=== PATIENT | female | born 1930 | race Asian ===

== ENCOUNTER 2018-11-07 19:11 | Inpatient (IN) ==
[2018-11-07] MEDS ORDERED: IOPAMIDOL 100 ML BOTTLE IV ONE (19:12)
--- NOTE | 2018-11-07 19:31 | Emergency Department Note ---
General Adult HPI - General Chief complaint: Weakness Stated complaint: fever Time Seen by Provider: 11/07/18 19:27 Source: EMS Mode of arrival: EMS Limitations: no limitations - History of Present Illness HPI Narrative: This patient came in because of fever and some generalized achiness. He does have a temperature of 103.2 but does not have specific symptoms of infection as far as his cough urinary symptoms. Onset (ago): day(s) - Related Data Home Medications Medication Instructions Recorded Confirmed Rivaroxaban [Xarelto] 20 mg PO DAILY 10/25/14 11/08/18 Spironolactone [Aldactone] 25 mg PO DAILY 10/25/14 11/08/18 Iron 65 mg PO DAILY 11/08/18 11/08/18 Meloxicam [Mobic] 7.5 mg PO DAILY 11/08/18 11/08/18 Previous Rx's Medication Instructions Recorded tramadol 50 mg tablet 100 mg PO BID #180 tab 09/30/14 Allergies Allergy/AdvReac Type Severity Reaction Status Date / Time carvedilol [From Coreg] Allergy Unknown Unknown Verified 10/25/14 16:20 gabapentin Allergy Unknown Unknown Verified 10/25/14 16:20 hydrocodone AdvReac Unknown HEADACHE, Verified 10/25/14 21:45 NAUSEA, SKIN FLUSHING Review of Systems All systems ED: reviewed and negative except as stated. Past Medical History - Past Medical History PMFSH Narrative: Medical History Chest pain (Acute) CHF (congestive heart failure) (Acute) Dehydration (Acute) Gastritis (Acute) Medical history: Reports: aortic aneurysm, CHF, CAD (coronary artery disease) - Social History smoking status: Never smoker Physical Exam Limitations: no limitations General appearance: alert Head: atraumatic Eye: Present: normal appearance ENT: Present: normal exam Chest: Present: normal inspection Respiratory: Present: normal lung sounds bilaterally Cardiovascular: Present: regular rate, normal rhythm, normal heart sounds Abdominal: Present: soft. Absent: distention, tenderness Neurological: Present: alert Psychiatric: Present: normal affect Skin: Present: warm, dry Course Vital Signs Temperature 102.3 F H 11/07/18 19:13 Pulse Rate 109 H 11/07/18 19:13 Respiratory Rate 18 11/07/18 19:13 Blood Pressure 128/91 11/07/18 19:13 Pulse Oximetry (%) 95 11/07/18 19:13 Temperature 96.4 F L 11/08/18 05:00 Pulse Rate 69 11/08/18 05:00 Respiratory Rate 16 11/08/18 05:00 Blood Pressure 94/76 11/08/18 05:56 Pulse Oximetry (%) 98 11/08/18 05:00 Medical Decision Making - MDM Narrative Medical decision making narrative: We could not find a specific source of infection and she had testing done including CT scan of chest abdomen and pelvis. Her blood pressure was acceptable when she arrived but it did drop down to so as low as 80. She r eceived 2 L of fluid. There was a concern for occult sepsis so she had blood cultures done and was given Levaquin and Rocephin initially and later vancomycin and Zosyn. Patient's blood pressure after fluid was in the 90-92 range. This patient will be admitted to the hospital by the hospitalist. - Medical Records Medical records reviewed: Yes I reviewed the patient's medical records. - Lab Data Result diagrams: 11/07/18 19:55 11/07/18 19:55 Lab Results 11/07/18 11/07/18 11/07/18 Range/Units 19:39 19:55 19:55 WBC 12.4 H (4.5-11.0) K/mcL RBC 3.75 L (4.00-5.20) M/mcL Hgb 13.3 (12.0-15.0) g/dL Hct 39.6 (36.0-48.0) % MCV 105.6 H (80.0-100.0) fL MCH 35.4 H (26.0-34.0) pg MCHC 33.5 (31.0-36.0) g/dL RDW 13.4 (11.5-14.5) % Plt Count 187 (140-440) K/mcL MPV 7.3 L (7.4-10.4) fL Gran % 91.7 H (38.0-78.0) % Lymph % (Auto) 4.3 L (15.5-49.0) % Ralls % (Auto) 3.9 (1.0-12.0) % Eos % (Auto) 0 (0.0-7.0) % Baso % (Auto) 0.1 (0.0-2.0) % Gran # 11.3 H (1.8-8.0) K/mcL Lymph # (Auto) 0.5 L (1.5-4.8) K/mcL Ralls # (Auto) 0.5 (0.1-0.9) K/mcL Eos # (Auto) 0 (0.0-0.7) K/mcL Baso # (Auto) 0 (0.0-0.3) K/mcL VBG Lactic Acid (0.5-2.0) mmol/L Sodium 140 (133-145) mmol/L Potassium 4.7 (3.3-5.1) mmol/L Chloride 102 (96-108) mmol/L Carbon Dioxide 23 (22-30) mmol/L Anion Gap 15.0 (8-16) BUN 50 H (8-23) mg/dl Creatinine 1.4 H (0.6-1.1) mg/dl GFR Calculation 33 Glucose 127 H (70-105) mg/dL Calcium 10.4 (8.6-10.4) mg/dl Total Bilirubin 1.0 (0.0-1.0) mg/dL AST 28 (0-37) U/l ALT 13 (0-40) U/l Alkaline Phosphatase 87 (39-117) U/L Troponin T (0-0.03) ng/ml C-Reactive Protein (0.0-0.8) mg/dl Total Protein 7.9 (5.9-8.4) gm/dL Albumin 3.1 L (3.2-5.2) gm/dL Globulin 4.8 H (2.2-3.7) gm/dL Albumin/Globulin Ratio 0.6 L (1.0-2.3) Procalcitonin (<0.10) ng/mL Urine Color Yellow Urine Appearance Clear Urine pH 5.0 (5.0-9.0) Ur Specific [place] 1.025 (1.000-1.035) Urine Protein Neg (NEG) mg/dL Urine Glucose (UA) Negative (NEG) mg/dL Urine Ketones 5/tr A (NEG) mg/dL Urine Occult Blood Neg (<0.03) mg/dL Urine Nitrate Neg (NEG) Urine Bilirubin Neg (NEG) mg/dL Urine Urobilinogen Neg (NEG) mg/dL Ur Leukocyte Esterase Neg (NEG) /uL Urine RBC 6 H (0-1) /hpf Urine WBC 1 (0-4) /hpf Ur Squamous Epith Cells < 1 (0-4) /hpf Urine Bacteria 0 (0) /hpf Urine Mucus Few (0) /hpf Ur Culture Indicated? No 11/07/18 11/08/18 11/08/18 Range/Units 19:55 00:45 00:45 WBC (4.5-11.0) K/mcL RBC (4.00-5.20) M/mcL Hgb (12.0-15.0) g/dL Hct (36.0-48.0) % MCV (80.0-100.0) fL MCH (26.0-34.0) pg MCHC (31.0-36.0) g/dL RDW (11.5-14.5) % Plt Count (140-440) K/mcL MPV (7.4-10.4) fL Gran % (38.0-78.0) % Lymph % (Auto) (15.5-49.0) % Ralls % (Auto) (1.0-12.0) % Eos % (Auto) (0.0-7.0) % Baso % (Auto) (0.0-2.0) % Gran # (1.8-8.0) K/mcL Lymph # (Auto) (1.5-4.8) K/mcL Ralls # (Auto) (0.1-0.9) K/mcL Eos # (Auto) (0.0-0.7) K/mcL Baso # (Auto) (0.0-0.3) K/mcL VBG Lactic Acid 1.9 (0.5-2.0) mmol/L Sodium (133-145) mmol/L Potassium (3.3-5.1) mmol/L Chloride (96-108) mmol/L Carbon Dioxide (22-30) mmol/L Anion Gap (8-16) BUN (8-23) mg/dl Creatinine (0.6-1.1) mg/dl GFR Calculation Glucose (70-105) mg/dL Calcium (8.6-10.4) mg/dl Total Bilirubin (0.0-1.0) mg/dL AST (0-37) U/l ALT (0-40) U/l Alkaline Phosphatase (39-117) U/L Troponin T < 0.01 (0-0.03) ng/ml C-Reactive Protein 7.2 H (0.0-0.8) mg/dl Total Protein (5.9-8.4) gm/dL Albumin (3.2-5.2) gm/dL Globulin (2.2-3.7) gm/dL Albumin/Globulin Ratio (1.0-2.3) Procalcitonin (<0.10) ng/mL Urine Color Urine Appearance Urine pH (5.0-9.0) Ur Specific [place] (1.000-1.035) Urine Protein (NEG) mg/dL Urine Glucose (UA) (NEG) mg/dL Urine Ketones (NEG) mg/dL Urine Occult Blood (<0.03) mg/dL Urine Nitrate (NEG) Urine Bilirubin (NEG) mg/dL Urine Urobilinogen (NEG) mg/dL Ur Leukocyte Esterase (NEG) /uL Urine RBC (0-1) /hpf Urine WBC (0-4) /hpf Ur Squamous Epith Cells (0-4) /hpf Urine Bacteria (0) /hpf Urine Mucus (0) /hpf Ur Culture Indicated? 11/08/18 Range/Units 00:45 WBC (4.5-11.0) K/mcL RBC (4.00-5.20) M/mcL Hgb (12.0-15.0) g/dL Hct (36.0-48.0) % MCV (80.0-100.0) fL MCH (26.0-34.0) pg MCHC (31.0-36.0) g/dL RDW (11.5-14.5) % Plt Count (140-440) K/mcL MPV (7.4-10.4) fL Gran % (38.0-78.0) % Lymph % (Auto) (15.5-49.0) % Ralls % (Auto) (1.0-12.0) % Eos % (Auto) (0.0-7.0) % Baso % (Auto) (0.0-2.0) % Gran # (1.8-8.0) K/mcL Lymph # (Auto) (1.5-4.8) K/mcL Ralls # (Auto) (0.1-0.9) K/mcL Eos # (Auto) (0.0-0.7) K/mcL Baso # (Auto) (0.0-0.3) K/mcL VBG Lactic Acid (0.5-2.0) mmol/L Sodium (133-145) mmol/L Potassium (3.3-5.1) mmol/L Chloride (96-108) mmol/L Carbon Dioxide (22-30) mmol/L Anion Gap (8-16) BUN (8-23) mg/dl Creatinine (0.6-1.1) mg/dl GFR Calculation Glucose (70-105) mg/dL Calcium (8.6-10.4) mg/dl Total Bilirubin (0.0-1.0) mg/dL AST (0-37) U/l ALT (0-40) U/l Alkaline Phosphatase (39-117) U/L Troponin T (0-0.03) ng/ml C-Reactive Protein (0.0-0.8) mg/dl Total Protein (5.9-8.4) gm/dL Albumin (3.2-5.2) gm/dL Globulin (2.2-3.7) gm/dL Albumin/Globulin Ratio (1.0-2.3) Procalcitonin 1.28 (<0.10) ng/mL Urine Color Urine Appearance Urine pH (5.0-9.0) Ur Specific [place] (1.000-1.035) Urine Protein (NEG) mg/dL Urine Glucose (UA) (NEG) mg/dL Urine Ketones (NEG) mg/dL Urine Occult Blood (<0.03) mg/dL Urine Nitrate (NEG) Urine Bilirubin (NEG) mg/dL Urine Urobilinogen (NEG) mg/dL Ur Leukocyte Esterase (NEG) /uL Urine RBC (0-1) /hpf Urine WBC (0-4) /hpf Ur Squamous Epith Cells (0-4) /hpf Urine Bacteria (0) /hpf Urine Mucus (0) /hpf Ur Culture Indicated? - Radiology Data Radiology results reviewed: Yes I reviewed the patient's radiology results. Disposition Pt seen by MAIL SUPERINTENDENT/PA only: No Clinical Impression: Sepsis Disposition: Xfer As Inpt ([facility]) Condition: Fair
[2018-11-07] MEDS ORDERED: ACETAMINOPHEN 325 MG TABLET PO ONE (19:54)
[2018-11-07] MEDS: LACTATED RINGERS 1,000 ML IV SCH (20:03)
[2018-11-07] MEDS ORDERED: LEVOFLOXACIN 750 MG/150 ML BAG IV ONE (21:18)
[2018-11-07] MEDS ORDERED: cefTRIAXone 1 GM VIAL IV ONE (21:19)
[2018-11-07 21:22] LABS: Basophils # (Auto) 0 K/mcL (0.0-0.3); Basophils % (Auto) 0.1 % (0.0-2.0); Eosinophils # (Auto) 0 K/mcL (0.0-0.7); Eosinophils % (Auto) 0 % (0.0-7.0); Granulocytes % (Auto) 91.7 % (38.0-78.0); Hematocrit 39.6 % (36.0-48.0); Hemoglobin 13.3 g/dL (12.0-15.0); Lymphocytes # (Auto) 0.5 K/mcL (1.5-4.8); Lymphocytes % (Auto) 4.3 % (15.5-49.0); Mean Cell Volume 105.6 fL (80.0-100.0); Mean Corpuscular HGB Conc 33.5 g/dL (31.0-36.0); Mean Platelet Volume 7.3 fL (7.4-10.4); Monocytes # (Auto) 0.5 K/mcL (0.1-0.9); Monocytes % (Auto) 3.9 % (1.0-12.0); Platelet Count 187 K/mcL (140-440); RBC 3.75 M/mcL (4.00-5.20); Red Cell Distribution Width 13.4 % (11.5-14.5); WBC 12.4 K/mcL (4.5-11.0)
[2018-11-07] MEDS ORDERED: LACTATED RINGERS 1,000 ML IV ONE (21:40)
[2018-11-07 21:42] LABS: Appearance,Urine CLEAR; Bacteria,Urine 0 /hpf (0); Bilirubin,Urine NEG (NEG); Color,Urine YELLOW; Culture Indicated,Urine NO; Glucose,Urine (UA) NEGATIVE (NEG); Ketones,Urine 5/TR mg/dL (NEG); Leukocyte Esterase,Urine NEG /uL (NEG); Mucus,Urine FEW /hpf (0); Nitrate,Urine NEG (NEG); Protein,Urine NEG (NEG); Specific Gravity,Urine 1.025 (1.000-1.035); Urine Blood NEG mg/dL (<0.03); Urine RBC 6 /hpf (0-1); Urine Squamous Epithelial Cell < 1 /hpf (0-4); Urine WBC 1 /hpf (0-4); Urobilinogen,Urine NEG (NEG)
[2018-11-07 21:46] LABS: ALT/SGPT 13 U/l (0-40); AST/SGOT 28 U/l (0-37); Albumin 3.1 gm/dL (3.2-5.2); Albumin/Globulin Ratio 0.6 (1.0-2.3); Alkaline Phosphatase 87 U/L (39-117); Blood Urea Nitrogen 50 mg/dl (8-23); Calcium 10.4 mg/dl (8.6-10.4); Carbon Dioxide 23 mmol/L (22-30); Chloride 102 mmol/L (96-108); Globulin 4.8 gm/dL (2.2-3.7); Glomerular Filtration Rate 33; Glucose 127 mg/dL (70-105)
[2018-11-08] MEDS ORDERED: 0.9 % SODIUM CHLORIDE 250 ML IV SCH (00:30)
[2018-11-08] MEDS ORDERED: NOREPINEPHRINE BITARTRATE 16 MG in 0.9 % SODIUM CHLORIDE 234 ML IV SCH (00:30)
[2018-11-08 01:42] LABS: C-Reactive Protein 7.2 mg/dl (0.0-0.8)
[2018-11-08] MEDS ORDERED: VANCOMYCIN 1,000 MG in 0.9 % SODIUM CHLORIDE 250 ML IV ONE (02:21)
[2018-11-08] MEDS ORDERED: PIPERACILLIN SODIUM/TAZOBACTAM 3.375 GM in DEXTROSE 5% IN WATER 50 ML IV ONE (02:21)
[2018-11-08] MEDS: LACTATED RINGERS 1,000 ML IV SCH ×2 (02:27→08:18)
[2018-11-08] MEDS ORDERED: LACTATED RINGERS 1,000 ML IV SCH (02:30)
--- NOTE | 2018-11-08 03:25 | XRay Report ---
CLINICAL INFORMATION: fever COMPARISON: 01/04/2015 FINDINGS: Moderate cardiomegaly is unchanged. Tortuous thoracic aorta again noted. The mediastinum and pulmonary vasculature are otherwise normal. Mild scattered bilateral scarring noted, but no staci infiltrates. No definite effusions. IMPRESSION: Moderate stable cardiomegaly - no acute disease Interpreted and Authenticated by: Sylvester Elias 11/08/18
--- NOTE | 2018-11-08 07:01 | Cat Scan Report ---
CLINICAL INFORMATION: Sepsis COMPARISON: Chest CT 01/30/[address] 10/27/2014 TECHNIQUE: Enteric contrast was utilized. 80 cc of Isovue-370 were injected intravenously, and 50 seconds later 2.5 mm helical slices were obtained from the lung apices through the subtrochanteric regions of the femurs. Following reconstruction, 2.5 mm sagittal, coronal and axial reformatted images were processed and reviewed at multiple windows and levels. 7 mm MIP reconstructions were obtained through the lungs to optimize nodule detection.The exam was performed using radiation dose optimization techniques including, but not limited to, automated exposure control, adjustment of the mA and/or kV according to patient size and use of iterative reconstruction technique. FINDINGS: Mediastinal windows show marked cardiomegaly which is unchanged. Ectasia of the thoracic aortic root diameter 3.8 cm is also also stable. Mild diffuse atherosclerotic plaque present in the thoracic aorta. The central pulmonary arteries are upper limits of normal in diameter: 3.2 cm. There is no adenopathy in the mediastinal hilar or axillary region. The esophagus is unremarkable. Pulmonary parenchymal windows show subsegmental compressive atelectasis in the anterior basilar segment of the left lower lobe due to the enlarged heart. There is also scattered scarring or atelectasis in both lungs - predominantly the right lower lobe. This is unchanged. There are no diffuse or regional infiltrates. No effusions. Abdominal images again show multiple cysts scattered throughout the liver ranging up to 4.2 cm inferior right hepatic lobe there are also stable. The gallbladder and bile ducts are normal: CBD is 5 mm. Both kidneys, adrenal glands, spleen and pancreas are unremarkable. The abdominal aorta contains plaque is normal diameter. Aortic branches contain atherosclerotic plaque but no stenosis. There are multiple varices in the perisplenic region which are unchanged. The stomach, small /large bowel and appendix are normal. Pelvic images show anteflexed uterus which is normal and stable in size: 6 cm x 4 cm. There are multiple small calcified fibroids scattered throughout the uterus which are stable since 2013. The region of the ovaries are normal. Urinary bladder is unremarkable. Bone windows show no focal osseous abnormality throughout the chest abdomen or pelvis. IMPRESSION: 1. No evidence of infection 2. Marked cardiomegaly - unchanged 3. Mild ectasia of the ascending thoracic aorta - 3.8 cm unchanged. 4. Multiple hepatic cysts stable since abdominal CT 10/27/2014 5. 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 Multiple small calcified fibroid uterus - stable Interpreted and Authenticated by: Sylvester Elias 11/08/18
[2018-11-08] MEDS ORDERED: VANCOMYCIN PER PHARMACY IV SCH (07:46)
--- NOTE | 2018-11-08 07:47 | Internal Med History&Physical ---
Medical - H&P: [facility] Patient information: Note initiated : 11/08/18 at 7:43 am Service Date, if different from initiated Date: [] Patient: Elisa Phan 88 y/o F admitted on 11/08/18 for fever. Chief Complaint: [] History of present illness: Ms. Phan is a 88 year old F Who presents for weakness for 2 weeks. Family stated she had not had anything to eat or drink for [address] of the chest abdomen pelvis unremarkable for evidence of infection. She was mildly hypotensive in the ED. Showed improvement with fluids. ED work-up for source of infection unremarkable. Patient is a poor historian and quite drowsy. she states weakness for about 10 days along with some dyspnea. Mild sore throat and family thinks may be that is why she was not eating, per nurses. No diarrhea chest pain or coughing. No wounds or ulcers. Complain of some chills but denies fever. She has has had some headache but none for the past couple days. He admitted to dysuria, although urinalysis was unremarkable. She has a history of PAF and is on Xarelto and an old note from 2014 showed metoprolol but she does not recall why she was taken off as it is not on her home list. Review of Systems: Pertinent positives as above. Denies headache/fever/nausea/vomiting/chest or abdominal pain/cough/dyspnea/diarrhea. Remaining 10 point review of systems reviewed negative Medical - H&P: PMH Medical history: Medical History Chest pain (Acute) CHF (congestive heart failure) (Acute) Dehydration (Acute) Gastritis (Acute) CAD CKD IIIb Past surgical history: Bilateral knee replacement Family history: Father hypertension Mother healthy Social history: Patient denies tobacco or alcohol Ablates with a walker Lives by herself Medical - H&P: Meds Home Medications Medication Instructions Recorded Confirmed Type tramadol 50 mg tablet 100 mg PO BID #180 tab 09/30/14 11/08/18 Rx Rivaroxaban [Xarelto] 20 mg PO DAILY 10/25/14 11/08/18 History Spironolactone [Aldactone] 25 mg PO DAILY 10/25/14 11/08/18 History Iron 65 mg PO DAILY 11/08/18 11/08/18 History Meloxicam [Mobic] 7.5 mg PO DAILY 11/08/18 11/08/18 History Allergies Allergy/AdvReac Type Severity Reaction Status Date / Time carvedilol [From Coreg] Allergy Unknown Unknown Verified 10/25/14 16:20 gabapentin Allergy Unknown Abdominal Verified 11/08/18 10:02 Pain hydrocodone AdvReac Unknown HEADACHE, Verified 10/25/14 21:45 NAUSEA, SKIN FLUSHING Medical - H&P: Exam - Constitutional Vitals: Temp Pulse Resp BP Pulse Ox 96.4 F L 78 16 90/68 96 11/08/18 05:00 11/08/18 07:00 11/08/18 05:00 11/08/18 07:00 11/08/18 07:00 Exam: General: drowsy, No acute Distress Eyes/N/T: EOMI, PEERL, DMM, posterior pharynx erythematous unable to appreciate exudates but difficult to evaluate given patient's cooperation head/Neck: neck supple, normocephalic atraumatic CV: irreg irreg, No murmurs, normal s1/s2 Pulm: Clear b/l, no wheezing/rhonchi/rales Abd: soft, mild generalized TTP, +BS x4 Ext: no clubbing/cyanosis/edema Neuro: drowsy, no focal deficits, moves all extremities, CN 2-12 grossly intact, symmetrical strength b/l upper/lower but lower quite weak symmetrically, sensations intact b/l upper/lower Skin: warm/dry Medical - H&P: Reslt - Labs CBC & Chem 7: 11/08/18 08:12 11/08/18 08:12 Labs: Short CBC 11/07/18 Range/Units 19:55 WBC 12.4 H (4.5-11.0) K/mcL Hgb 13.3 (12.0-15.0) g/dL Hct 39.6 (36.0-48.0) % Plt Count 187 (140-440) K/mcL BMP 11/07/18 19:55 Sodium 140 Potassium 4.7 Chloride 102 Carbon Dioxide 23 BUN 50 H Creatinine 1.4 H Glucose 127 H Calcium 10.4 Cardiac Enzymes 11/08/18 Range/Units 00:45 Troponin T < 0.01 (0-0.03) ng/ml Liver Function 11/07/18 Range/Units 19:55 Total Bilirubin 1.0 (0.0-1.0) mg/dL AST 28 (0-37) U/l ALT 13 (0-40) U/l Alkaline Phosphatase 87 (39-117) U/L Albumin 3.1 L (3.2-5.2) gm/dL Urine 11/07/18 Range/Units 19:39 Urine Color Yellow Urine Appearance Clear Urine pH 5.0 (5.0-9.0) Ur Specific [place] 1.025 (1.000-1.035) Urine Protein Neg (NEG) mg/dL Urine Glucose (UA) Negative (NEG) mg/dL - Impressions CT chest abdomen pelvis unremarkable for obvious infection Medical - H&P: A/P - Narrative A/P Narrative: A: *Sepsis-like presentation: unkown source at this time, UA and imaging unremarkable, no wounds noted, does have mild sore throat -now afebrile, mild leukocytosis -PCT 1.28 -CT c/a/p no source *Hypotenstion: resolved in ED with IVF's *Encephalopathy (Lethargy): *Pharyngitis, mild: *CKD IIIb: stable *PAF: on xaralto. *HTN: on aldactone *h/o Pancytopenia and Hepatocellular CA and Hep B: *ARCHANA: on iron supp P: -Vanc/zosyn -pending BC -rapid strep test, ASO -f/u PCT -consider ID consult - -pt/ot -ppx: xaralto full code Medical - H&P: Qual - VTE Deep Vein Thrombosis/Pulmonary Embolism Present on Admission: No
[2018-11-08] MEDS ORDERED: PIPERACILLIN SODIUM/TAZOBACTAM 2.25 GM in DEXTROSE 5% IN WATER 50 ML IV SCH (08:00)
[2018-11-08 08:50] LABS: Hematocrit 29.2 % (36.0-48.0); Hemoglobin 9.6 g/dL (12.0-15.0); Mean Cell Volume 107.3 fL (80.0-100.0); Mean Platelet Volume 7.2 fL (7.4-10.4); Platelet Count 184 K/mcL (140-440); RBC 2.72 M/mcL (4.00-5.20); Red Cell Distribution Width 13.4 % (11.5-14.5); WBC 11.9 K/mcL (4.5-11.0)
[2018-11-08] MEDS: ACETAMINOPHEN 325 MG TABLET PO PRN ×2 (09:13→15:39)
[2018-11-08 09:17] LABS: ALT/SGPT 20 U/l (0-40); AST/SGOT 47 U/l (0-37); Albumin 3.1 gm/dL (3.2-5.2); Albumin/Globulin Ratio 0.7 (1.0-2.3); Alkaline Phosphatase 55 U/L (39-117); Bilirubin,Direct 0.5 mg/dL (0.0-0.3); Bilirubin,Total 1.1 mg/dL (0.0-1.0); Blood Urea Nitrogen 43 mg/dl (8-23); Calcium 9.5 mg/dl (8.6-10.4); Carbon Dioxide 24 mmol/L (22-30); Chloride 101 mmol/L (96-108); Globulin 4.2 gm/dL (2.2-3.7); Glomerular Filtration Rate 40; Glucose 105 mg/dL (70-105); Lactate Dehydrogenase 227 U/L (94-250); Phosphorous 2.1 mg/dL (2.7-4.5); Triglycerides 110 mg/dl (<150); Uric Acid 6.6 mg/dL (2.5-8.0)
[2018-11-08 09:36] LABS: Folate > 20.0 ng/mL (4.2-19.9)
[2018-11-08 10:00] LABS: Band Neutrophils % 1 % (0-10); Lymphocytes % 9 % (15-49); Macrocytosis 2+ (NONE SEEN); Monocytes % (Manual) 3 % (1-12); Platelet Estimate NORMAL (NORMAL); RBC Morphology ABNORM (NORMAL); Segmented Neutrophils % 87 % (38-78)
[2018-11-08] MEDS ORDERED: ONDANSETRON 4 MG/2 ML VIAL IV PRN (10:04)
[2018-11-08] MEDS ORDERED: POLYETHYLENE GLYCOL 3350 17 GM PACKET PO PRN (10:04)
[2018-11-08] MEDS ORDERED: SENNOSIDES 1 TABLET PO PRN (10:04)
[2018-11-08] MEDS ORDERED: POTASSIUM CHLORIDE 20 MEQ TABLET PO PRN ×2 (10:04)
[2018-11-08] MEDS ORDERED: MAGNESIUM SULFATE 2 GM/50 ML BAG IV PRN (10:04)
[2018-11-08] MEDS ORDERED: METOCLOPRAMIDE 10 MG/2 ML VIAL IV PRN (10:04)
[2018-11-08] MEDS ORDERED: POTASSIUM CHLORIDE 40 MEQ in DEXTROSE 5% IN WATER 500 ML IV PRN (10:04)
[2018-11-08] MEDS ORDERED: LACTULOSE 20 GM/30 ML ORAL.SOL PO PRN (10:04)
[2018-11-08] MEDS ORDERED: IPRATROPIUM/ALBUTEROL 3 ML AMPUL.NEB NEB PRN (10:04)
[2018-11-08] MEDS: 0.9 % SODIUM CHLORIDE 1,000 ML IV SCH (11:31)
[2018-11-08] MEDS: traMADol 50 MG TABLET PO PRN (11:47)
[2018-11-08] MEDS: 0.9 % SODIUM CHLORIDE 10 ML SYRINGE IV SCH ×3 (11:51→22:36)
--- NOTE | 2018-11-08 16:40 | Event Note ---
Full note to follow tomorrow [facility]PC in chains in 2/2 blood cultures from 11/07. Pt on IV Vanc/Zosyn. Spoke with Dr Luna and Dr Lamar to stop Zosyn. Continue IV Vanc. Will deescalate once ID and sensi available. Repeat 2 sets of blood Cx tomorrow am.
[2018-11-08] MEDS: RIVAROXABAN 20 MG TABLET PO SCH (17:34)
[2018-11-08] MEDS: NOREPINEPHRINE BITARTRATE 16 MG in 0.9 % SODIUM CHLORIDE 234 ML IV SCH ×2 (17:45→18:50)
--- NOTE | 2018-11-08 20:14 | Internal Med Progress Note ---
Medical - PN: Subj Patient information: Note initiated : 11/08/18 at 8:10 pm Service Date, if different from initiated Date: [] Patient: Elisa Phan 88 y/o F admitted on 11/08/18 for fever. Chief Complaint: [] Interval history: Ms. Phan is a 88 year old F Who presents for weakness for 2 weeks. Family stated she had not had anything to eat or drink for [address] of the chest abdomen pelvis unremarkable for evidence of infection. She was mildly hypotensive in the ED. Showed improvement with fluids. ED work-up for source of infection unremarkable. Patient is a poor historian and quite drowsy. she states weakness for about 10 days along with some dyspnea. Mild sore throat and family thinks may be that is why she was not eating, per nurses. No diarrhea chest pain or coughing. No wounds or ulcers. Complain of some chills but denies fever. She has has had some headache but none for the past couple days. He admitted to dysuria, although urinalysis was unremarkable. She has a history of PAF and is on Xarelto and an old note from 2014 showed metoprolol but she does not recall why she was taken off as it is not on her home list. 11/08-patient bacteremic and septic shock. Systolics trending down to low 100s. Urine output less than 15 cc an hour. Status post index of 3000 cc crystalloid resuscitation. Initiate vasopressors. Multiple blood cultures positive for gram-positive cocci. ID consulted. On IV vancomycin. Received 1 dose of Rocephin/levofloxacin in the ER. Trend venous lactate - Constitutional Vitals: Vital Signs Temp Pulse Resp BP Pulse Ox 98.2 F 66 24 H 136/119 99 11/08/18 20:01 11/08/18 09:00 11/08/18 20:07 11/08/18 20:01 11/08/18 19:51 Period Temp Pulse Resp BP Sys/Gaspar Pulse Ox Last 24 Hr 96.4 F-98.6 F 41-177 12-31 74-136/55-119 94-100 Intake and Output 11/08/18 11/08/18 11/08/18 05:59 13:59 21:59 Intake Total 1468 654 160 Output Total 362 81 Balance 1468 292 79 Weight 99 lb 6.4 oz Intake & Output: Intake & Output 11/08/18 11/08/18 11/08/18 05:59 13:59 21:59 Intake Total 1468 654 160 Output Total 362 81 Balance 1468 292 79 Weight 99 lb 6.4 oz Intake: IV 1468 654 Lactated Ringers 1,000 ml @ 125 1038 654 mls/hr IV .Q8H [facility] Rx#: [id number] Zosyn 3.375 gm In Dextrose 5% 30 in Water 50 ml @ 100 mls/hr IV ONCE ONE Rx#:[id number] Oral 0 160 Output: Urine Catheter Amount 360 81 # of times incontinent of urine 2 Other: Meal Lunch Dinner Percent of Meal Consumed 25% 50% Feeding Ability Total Assistance Total Assistance Urine Appearance Clear Clear Fem Cath Clear Urine Color Dark Yellow Dark Yellow Fem Cath Dark Yellow Urine Odor Strong General appearance: no acute distress Exam: Fatigue lethargic Minimal urine output 15 cc an hour Pink's catheter No lymphedema Diminished breath sounds bases Skin exam normal Medical - PN: Obj Da - Labs CBC & Chem 7: 11/09/18 03:45 11/09/18 03:45 Labs: Abnormal Lab Results 11/08/18 11/08/18 11/08/18 08:12 08:12 08:12 WBC RBC Hgb Hct MCV MCH MPV Gran % Lymph % (Auto) Gran # Lymph # (Auto) Seg Neutrophils % Lymphocytes % RBC Morphology Macrocytosis ESR > 120 H BUN 43 H Creatinine 1.2 H Glucose Phosphorus 2.1 L Total Bilirubin 1.1 H Direct Bilirubin 0.5 H GGT 46 H AST 47 H C-Reactive Protein Albumin 3.1 L Globulin 4.2 H Albumin/Globulin Ratio 0.7 L Vitamin B12 > 2000 H Folate > 20.0 H Urine Ketones Urine RBC 11/08/18 11/08/18 11/07/18 08:12 00:45 19:55 WBC 11.9 H RBC 2.72 L Hgb 9.6 L Hct 29.2 L MCV 107.3 H MCH 35.4 H MPV 7.2 L Gran % Lymph % (Auto) Gran # Lymph # (Auto) Seg Neutrophils % 87 H Lymphocytes % 9 L RBC Morphology Abnorm A Macrocytosis 2+ A ESR BUN 50 H Creatinine 1.4 H Glucose 127 H Phosphorus Total Bilirubin Direct Bilirubin GGT AST C-Reactive Protein 7.2 H Albumin 3.1 L Globulin 4.8 H Albumin/Globulin Ratio 0.6 L Vitamin B12 Folate Urine Ketones Urine RBC 11/07/18 11/07/18 19:55 19:39 WBC 12.4 H RBC 3.75 L Hgb Hct MCV 105.6 H MCH 35.4 H MPV 7.3 L Gran % 91.7 H Lymph % (Auto) 4.3 L Gran # 11.3 H Lymph # (Auto) 0.5 L Seg Neutrophils % Lymphocytes % RBC Morphology Macrocytosis ESR BUN Creatinine Glucose Phosphorus Total Bilirubin Direct Bilirubin GGT AST C-Reactive Protein Albumin Globulin Albumin/Globulin Ratio Vitamin B12 Folate Urine Ketones 5/tr A Urine RBC 6 H Meds: Medications Acetaminophen (Tylenol) 650 mg PO Q6HP PRN PRN Reason: PAIN/FEVER > 101 Last Admin: 11/08/18 15:39 Dose: 650 mg Documented by: Albuterol/Ipratropium (Duoneb) 3 ml NEB Q4HP PRN PRN Reason: Shortness Of Breath Docusate Sodium (Colace) 100 mg PO BID [facility] Famotidine (Pepcid) 20 mg IV HS [facility] Vancomycin HCl 1,000 mg/ (Sodium Chloride) 250 mls @ 250 mls/hr IV Q24H [facility] Potassium Chloride 40 meq/ (Dextrose) 520 mls @ 130 mls/hr IV UD PRN PRN Reason: Potassium < 3 Magnesium Sulfate (Magnesium Sulfate) 2 gm in 50 mls @ 50 mls/hr IV UD PRN PRN Reason: Magnesium </= 1.6 Sodium Chloride (Sodium Chloride 0.9%) 1,000 mls @ 75 mls/hr IV .[id number] [facility] Stop: 11/09/18 12:54 Last Admin: 11/08/18 11:31 Dose: 75 mls/hr Documented by: Norepinephrine Bitartrate 16 (mg/ Sodium Chloride) 250 mls @ 9.38 mls/hr IV Q24H [facility]; Protocol Last Admin: 11/08/18 18:50 Dose: 5 mcg/min, 4.69 mls/hr Documented by: Lactulose (Cephulac) 10 gm PO DAILYP PRN PRN Reason: Constipation Metoclopramide HCl (Reglan) 10 mg IV Q6HP PRN PRN Reason: Nausea And Vomiting Nystatin (Nystatin) 500,000 units SSW BID [facility] Ondansetron HCl (Zofran) 4 mg IV Q4HP PRN PRN Reason: Nausea And Vomiting Polyethylene Glycol (Miralax) 17 gm PO DAILYP PRN PRN Reason: Constipation Potassium Chloride (Kdur) 40 meq PO UD PRN PRN Reason: Potssium is 3-3.5 Potassium Chloride (Kdur) 40 meq PO UD PRN PRN Reason: Potassium < 3 Rivaroxaban (Xarelto) 20 mg PO QPMCC [facility] Last Admin: 11/08/18 17:34 Dose: 20 mg Documented by: Senna (Senokot) 2 tab PO HSP PRN PRN Reason: Constipation Sodium Chloride (Saline Flush) 10 ml IV Q8 [facility] Last Admin: 11/08/18 14:23 Dose: 10 ml Documented by: Tramadol HCl (Ultram) 100 mg PO BIDP PRN PRN Reason: Pain Last Admin: 11/08/18 11:47 Dose: 100 mg Documented by: Vancomycin HCl (Vancomycin Per Pharmacy) 1 order IV UD [facility]; Protocol Medical - PN: A/P - Time Spent With Patient Total time spent is greater than 50% in coordination of care (as documented) at patient's floor/unit and/or counseling patient: 25 - 35 minutes (1) Septic shock Status: Acute Assessment and plan: * Septic shock-continue management per guidelines, vasopressors, crystalloids, broad antibiotic coverage. Unclear source at this time but secondary to GPC bacteremia. ID consulted. White count downtrending from 12. creatinine 1.2. Procalcitonin downtrending * Gram-positive bacteremia-continue antibiotic coverage, surveillance cultures * Approximator fibrillation currently rate controlled. CVA prophylaxis on Xarelto * Stage III CKD. Creatinine 1.3. * Encephalopathy-secondary to sepsis endorgan dysfunction. Continue close monitoring. * Iron deficiency anemia on iron supplements. Plan * Continue broad antibiotic coverage * Initiate vasopressors to keep map at goal * Serial lactic trending * Septic shock management per guidelines * ICU care * [place] 2 score 16. Patient critically ill Critical care time spent in excess of 35 minutes on management of septic shock, vasopressor management and discussions with physicians/care coordination Current Visit: Yes Medical - PN: Qual - VTE Deep Vein Thrombosis/Pulmonary Embolism Present on Admission: No
[2018-11-08] MEDS: DOCUSATE SODIUM 100 MG CAPSULE PO SCH (22:36)
[2018-11-08] MEDS: NYSTATIN 500,000 UNITS/5 ML ORAL.SUSP SSW SCH (22:39)
[2018-11-08] MEDS: FAMOTIDINE/PF 20 MG/2 ML VIAL IV SCH (22:39)
[2018-11-09] MEDS: ACETAMINOPHEN 325 MG TABLET PO PRN ×2 (00:30→14:20)
[2018-11-09] MEDS: 0.9 % SODIUM CHLORIDE 1,000 ML IV SCH (00:32)
[2018-11-09] MEDS: 0.9 % SODIUM CHLORIDE 10 ML SYRINGE IV SCH ×4 (05:51→21:16)
[2018-11-09 06:20] LABS: ALT/SGPT 22 U/l (0-40); AST/SGOT 37 U/l (0-37); Albumin 2.5 gm/dL (3.2-5.2); Albumin/Globulin Ratio 0.7 (1.0-2.3); Alkaline Phosphatase 54 U/L (39-117); Bilirubin,Direct 0.3 mg/dL (0.0-0.3); Bilirubin,Total 0.7 mg/dL (0.0-1.0); Blood Urea Nitrogen 45 mg/dl (8-23); C-Reactive Protein 5.5 mg/dl (0.0-0.8); Calcium 8.9 mg/dl (8.6-10.4); Carbon Dioxide 18 mmol/L (22-30); Chloride 110 mmol/L (96-108); Globulin 3.8 gm/dL (2.2-3.7); Glomerular Filtration Rate 37; Glucose 104 mg/dL (70-105); Hematocrit 35.1 % (36.0-48.0); Hemoglobin 11.6 g/dL (12.0-15.0); Lactate Dehydrogenase 222 U/L (94-250); Mean Cell Volume 107.8 fL (80.0-100.0); Mean Corpuscular HGB Conc 32.9 g/dL (31.0-36.0); Mean Platelet Volume 7.2 fL (7.4-10.4); Phosphorous 2.1 mg/dL (2.7-4.5); Platelet Count 191 K/mcL (140-440); RBC 3.26 M/mcL (4.00-5.20); Red Cell Distribution Width 13.7 % (11.5-14.5); Triglycerides 92 mg/dl (<150); Uric Acid 6.6 mg/dL (2.5-8.0); WBC 10.2 K/mcL (4.5-11.0)
[2018-11-09 07:36] LABS: Lymphocytes % 7 % (15-49); Macrocytosis 2+ (NONE SEEN); Monocytes % (Manual) 5 % (1-12); Platelet Estimate NORMAL (NORMAL); RBC Morphology ABNORM (NORMAL); Segmented Neutrophils % 88 % (38-78)
[2018-11-09] MEDS ORDERED: VANCOMYCIN 1,000 MG in 0.9 % SODIUM CHLORIDE 250 ML IV SCH (09:00)
[2018-11-09] MEDS: DOCUSATE SODIUM 100 MG CAPSULE PO SCH ×2 (09:18→21:16)
[2018-11-09] MEDS: NYSTATIN 500,000 UNITS/5 ML ORAL.SUSP SSW SCH ×2 (09:18→21:16)
--- NOTE | 2018-11-09 09:31 | Internal Med Progress Note ---
Medical - PN: Subj Patient information: Note initiated : 11/09/18 at 9:28 am Service Date, if different from initiated Date: [] Patient: Elisa Phan 88 y/o F admitted on 11/08/18 for fever. Chief Complaint: [] Interval history: Ms. Phan is a 88 year old F Who presents for weakness for 2 weeks. Family stated she had not had anything to eat or drink for [address] of the chest abdomen pelvis unremarkable for evidence of infection. She was mildly hypotensive in the ED. Showed improvement with fluids. ED work-up for source of infection unremarkable. Patient is a poor historian and quite drowsy. she states weakness for about 10 days along with some dyspnea. Mild sore throat and family thinks may be that is why she was not eating, per nurses. No diarrhea chest pain or coughing. No wounds or ulcers. Complain of some chills but denies fever. She has has had some headache but none for the past couple days. He admitted to dysuria, although urinalysis was unremarkable. She has a history of PAF and is on Xarelto and an old note from 2014 showed metoprolol but she does not recall why she was taken off as it is not on her home list. 11/08-patient bacteremic and septic shock. Systolics trending down to low 100s. Urine output less than 15 cc an hour. Status post index of 3000 cc crystalloid resuscitation. Initiate vasopressors. Multiple blood cultures positive for gram-positive cocci. ID consulted. On IV vancomycin. Received 1 dose of Rocephin/levofloxacin in the ER. Trend venous lactate 11/09-patient clinically improving with increased lucidity/able to communicate. Urine output improved to greater than 0.5 cc/kg body weight per hour. White count downtrending. Endorgan dysfunction clinically improved. Vasopressors titrating down to 3 mics Levophed. Unclear source. ID on board. Surveillance cultures pending. Lactic acid normalized. - Constitutional Vitals: Vital Signs Temp Pulse Resp BP Pulse Ox 98.4 F 88 21 109/75 99 11/09/18 07:46 11/09/18 05:56 11/09/18 09:16 11/09/18 09:16 11/09/18 09:16 Period Temp Pulse Resp BP Sys/Gaspar Pulse Ox Last 24 Hr 97.4 F-98.4 F 88 12-31 77-136/45-119 94-100 Intake and Output 11/08/18 11/09/18 11/09/18 21:59 05:59 13:59 Intake Total 160 1000 305 Output Total 101 225 103 Balance 59 775 202 Weight 99 lb 6.4 oz Intake & Output: Intake & Output 11/08/18 11/09/18 11/09/18 21:59 05:59 13:59 Intake Total 160 1000 305 Output Total 101 225 103 Balance 59 775 202 Weight 99 lb 6.4 oz Intake: IV 1000 65 Sodium Chloride 0.9% 1,000 ml @ 1000 75 mls/hr IV .[id number] [facility] Rx#: [id number] Levophed 16 mg In Sodium 65 Chloride 0.9% 234 ml @ 10 MCG/ MIN 9.38 mls/hr IV Q24H [facility] Rx# :[id number] Oral 160 240 Output: Urine Catheter Amount 101 225 103 Other: Meal Dinner Breakfast Percent of Meal Consumed 50% 100% Feeding Ability Total Assistance Assist with Tray Set Up Urine Appearance Clear Clear Clear Fem Cath Clear Urine Color Dark Yellow Dark Yellow Fem Cath Bright Yellow General appearance: no acute distress Exam: alert and oriented Nonlabored breathing No telemetry events Pink is draining clear urine output improved to over 30 cc an hour, Minimal anxiety Medical - PN: Obj Da - Labs CBC & Chem 7: 11/09/18 03:45 11/09/18 03:45 Labs: Abnormal Lab Results 11/09/18 11/09/18 11/08/18 03:45 03:45 08:12 WBC RBC 3.26 L Hgb 11.6 L Hct 35.1 L MCV 107.8 H MCH 35.5 H MPV 7.2 L Gran % Lymph % (Auto) Gran # Lymph # (Auto) Seg Neutrophils % 88 H Lymphocytes % 7 L RBC Morphology Abnorm A Macrocytosis 2+ A ESR > 120 H Chloride 110 H Carbon Dioxide 18 L BUN 45 H Creatinine 1.3 H Glucose Phosphorus 2.1 L Total Bilirubin Direct Bilirubin GGT 47 H AST C-Reactive Protein 5.5 H Albumin 2.5 L Globulin 3.8 H Albumin/Globulin Ratio 0.7 L Vitamin B12 Folate Urine Ketones Urine RBC 11/08/18 11/08/18 11/08/18 08:12 08:12 08:12 WBC 11.9 H RBC 2.72 L Hgb 9.6 L Hct 29.2 L MCV 107.3 H MCH 35.4 H MPV 7.2 L Gran % Lymph % (Auto) Gran # Lymph # (Auto) Seg Neutrophils % 87 H Lymphocytes % 9 L RBC Morphology Abnorm A Macrocytosis 2+ A ESR Chloride Carbon Dioxide BUN 43 H Creatinine 1.2 H Glucose Phosphorus 2.1 L Total Bilirubin 1.1 H Direct Bilirubin 0.5 H GGT 46 H AST 47 H C-Reactive Protein Albumin 3.1 L Globulin 4.2 H Albumin/Globulin Ratio 0.7 L Vitamin B12 > 2000 H Folate > 20.0 H Urine Ketones Urine RBC 11/08/18 11/07/18 11/07/18 00:45 19:55 19:55 WBC 12.4 H RBC 3.75 L Hgb Hct MCV 105.6 H MCH 35.4 H MPV 7.3 L Gran % 91.7 H Lymph % (Auto) 4.3 L Gran # 11.3 H Lymph # (Auto) 0.5 L Seg Neutrophils % Lymphocytes % RBC Morphology Macrocytosis ESR Chloride Carbon Dioxide BUN 50 H Creatinine 1.4 H Glucose 127 H Phosphorus Total Bilirubin Direct Bilirubin GGT AST C-Reactive Protein 7.2 H Albumin 3.1 L Globulin 4.8 H Albumin/Globulin Ratio 0.6 L Vitamin B12 Folate Urine Ketones Urine RBC 11/07/18 19:39 WBC RBC Hgb Hct MCV MCH MPV Gran % Lymph % (Auto) Gran # Lymph # (Auto) Seg Neutrophils % Lymphocytes % RBC Morphology Macrocytosis ESR Chloride Carbon Dioxide BUN Creatinine Glucose Phosphorus Total Bilirubin Direct Bilirubin GGT AST C-Reactive Protein Albumin Globulin Albumin/Globulin Ratio Vitamin B12 Folate Urine Ketones 5/tr A Urine RBC 6 H Meds: Medications Acetaminophen (Tylenol) 650 mg PO Q6HP PRN PRN Reason: PAIN/FEVER > 101 Last Admin: 11/09/18 00:30 Dose: 650 mg Documented by: Albuterol/Ipratropium (Duoneb) 3 ml NEB Q4HP PRN PRN Reason: Shortness Of Breath Docusate Sodium (Colace) 100 mg PO BID [facility] Last Admin: 11/09/18 09:18 Dose: 100 mg Documented by: Famotidine (Pepcid) 20 mg IV HS [facility] Last Admin: 11/08/18 22:39 Dose: 20 mg Documented by: Vancomycin HCl 1,000 mg/ (Sodium Chloride) 250 mls @ 250 mls/hr IV Q24H [facility] Last Admin: 11/09/18 09:18 Dose: 250 mls/hr Documented by: Potassium Chloride 40 meq/ (Dextrose) 520 mls @ 130 mls/hr IV UD PRN PRN Reason: Potassium < 3 Magnesium Sulfate (Magnesium Sulfate) 2 gm in 50 mls @ 50 mls/hr IV UD PRN PRN Reason: Magnesium </= 1.6 Sodium Chloride (Sodium Chloride 0.9%) 1,000 mls @ 75 mls/hr IV .[id number] [facility] Stop: 11/09/18 12:54 Last Admin: 11/09/18 00:32 Dose: 75 mls/hr Documented by: Norepinephrine Bitartrate 16 (mg/ Sodium Chloride) 250 mls @ 9.38 mls/hr IV Q24H [facility]; Protocol Last Titration: 11/09/18 09:00 Dose: 2 mcg/min, 1.875 mls/hr Documented by: Lactulose (Cephulac) 10 gm PO DAILYP PRN PRN Reason: Constipation Metoclopramide HCl (Reglan) 10 mg IV Q6HP PRN PRN Reason: Nausea And Vomiting Nystatin (Nystatin) 500,000 units SSW BID [facility] Last Admin: 11/09/18 09:18 Dose: 500,000 units Documented by: Ondansetron HCl (Zofran) 4 mg IV Q4HP PRN PRN Reason: Nausea And Vomiting Pneumococcal Polyvalent Vaccine (Pneumovax 23) 0.5 ml IM .ONCE ONE Stop: 11/10/18 10:01 Polyethylene Glycol (Miralax) 17 gm PO DAILYP PRN PRN Reason: Constipation Potassium Chloride (Kdur) 40 meq PO UD PRN PRN Reason: Potssium is 3-3.5 Potassium Chloride (Kdur) 40 meq PO UD PRN PRN Reason: Potassium < 3 Rivaroxaban (Xarelto) 20 mg PO QPMCC [facility] Last Admin: 11/08/18 17:34 Dose: 20 mg Documented by: Senna (Senokot) 2 tab PO HSP PRN PRN Reason: Constipation Sodium Chloride (Saline Flush) 10 ml IV Q8 [facility] Last Admin: 11/09/18 05:51 Dose: Not Given Documented by: Tramadol HCl (Ultram) 100 mg PO BIDP PRN PRN Reason: Pain Last Admin: 11/08/18 11:47 Dose: 100 mg Documented by: Vancomycin HCl (Vancomycin Per Pharmacy) 1 order IV UD [facility]; Protocol Medical - PN: A/P - Time Spent With Patient Total time spent is greater than 50% in coordination of care (as documented) at patient's floor/unit and/or counseling patient: 25 - 35 minutes (Critical care time) (1) Septic shock Status: Acute Assessment and plan: * Septic shock-clinical improvement noted. Vasopressors being titrated down. Improved endorgan dysfunction. Map at goal. Continue management per guidelines,broad antibiotic coverage. Unclear source , GPC bacteremia. ID on board. WBC downtrending. Procalcitonin downtrending * Gram-positive bacteremia-continue antibiotic coverage, surveillance cultures pending * Approximator fibrillation currently rate controlled. CVA prophylaxis on Xare lto * Stage III CKD. Creatinine 1.3. * Encephalopathy-secondary to sepsis endorgan dysfunction. Continue close monitoring. * Iron deficiency anemia on iron supplements. * DVT prophylaxis on Xarelto Plan * Continue antibiotic coverage per ID * Wean vasopressors as tolerated * Source evaluation * Continue ICU care * Improving prognosis Current Visit: Yes Medical - PN: Qual - VTE Deep Vein Thrombosis/Pulmonary Embolism Present on Admission: No
[2018-11-09] MEDS: cefTRIAXone 2 GM in DEXTROSE 5% IN WATER 50 ML IV SCH (15:28)
[2018-11-09] MEDS: RIVAROXABAN 20 MG TABLET PO SCH (17:32)
[2018-11-09] MEDS: NOREPINEPHRINE BITARTRATE 16 MG in 0.9 % SODIUM CHLORIDE 234 ML IV SCH (17:34)
[2018-11-09] MEDS: traMADol 50 MG TABLET PO PRN (21:15)
[2018-11-09] MEDS: CHLORHEXIDINE GLUCONATE 1 ML ORAL.SOL SSP SCH (21:16)
[2018-11-09] MEDS: FAMOTIDINE/PF 20 MG/2 ML VIAL IV SCH (21:16)
--- NOTE | 2018-11-09 22:08 | Infectious Disease Consult ---
History of Present Illness Patient information: Note initiated : 11/09/18 at 9:57 pm Service Date, if different from initiated Date: [] Patient: Elisa Phan 88 y/o F admitted on 11/08/18 for fever. Chief Complaint: [] Consult date: 11/09/18 Requesting Physician: Shane Luna Reason for Consult: GPC bacteremia Chief complaint: I was weak History of present illness: HPI obtained mainly from chart review, as pt doesnot remember much, just woke up from sleep at time of visit 88 year old lady with PMHx of CHF, Afib (on Xarelto) admitted on 11/07 with 2 week Hx of weakness, and not eating/drinking for 2 days prior to admission. She had a temp of 102.3 F, HR 109, BP 128/91. Her BP subseq dropped to 80s systolic later. WBC was 12.4k. She was started on IVF, blood Cx sent and started on IV Levaquin and Ceftriaxone first; later switched to IV Vanc and IV Zosyn. CT of the chest/abdomen pelvis unremarkable for evidence of infection. Her hypotension persisted despite IVF received at admission, and she was placed on IV norepi on 11/08, which was weaned off and stopped on 11/09. Blood Cx came back positive for GPC in chains, 2/2 sets on 11/08. Pt's abx deescalated to IV Vanc. At time of visit, she was sleeping. She woke up, and reported that she was feeling partially better. She denied any fevers, chills, n/v, diarrgea, cough, SOB, chest pain. Endorsed some pain in both legs. Her WBC has been normal as well today at 10.2k. Review of Systems All systems PM: reviewed and no additional remarkable complaints except as stated Constitutional: as per HPI Past History Past family history: no sick contacts Past social history: non smoker lives in [place], [place] Medications and Allergies Home Medications Medication Instructions Recorded Confirmed Type tramadol 50 mg tablet 100 mg PO BID #180 tab 09/30/14 11/08/18 Rx Rivaroxaban [Xarelto] 20 mg PO DAILY 10/25/14 11/08/18 History Spironolactone [Aldactone] 25 mg PO DAILY 10/25/14 11/08/18 History Iron 65 mg PO DAILY 11/08/18 11/08/18 History Meloxicam [Mobic] 7.5 mg PO DAILY 11/08/18 11/08/18 History Allergies Allergy/AdvReac Type Severity Reaction Status Date / Time carvedilol [From Coreg] Allergy Unknown Unknown Verified 11/09/18 12:08 gabapentin AdvReac Mild Abdominal Verified 11/09/18 06:57 Pain hydrocodone AdvReac Mild HEADACHE, Verified 11/09/18 06:57 NAUSEA, SKIN FLUSHING Physical Examination Vital signs: Temp Pulse Resp BP Pulse Ox 37.2 C 88 19 91/74 100 11/09/18 17:36 11/09/18 05:56 11/09/18 20:01 11/09/18 20:01 11/09/18 20:01 General appearance: no acute distress Eyes pulmonary: nonicteric ENT: oropharynx moist Auscultation: bilateral: clear (decreased BS at bases) Cardiovascular: other (irregularly irregular heart rate, s1 s2 normal) Gastrointestinal: normoactive bowel sounds, soft, non-tender, non-distended Integumentary: normal Extremities: no edema Results - Laboratory Findings CBC and BMP: 11/10/18 03:32 11/10/18 03:32 Abnormal lab findings: Abnormal Labs 11/07/18 11/07/18 11/07/18 19:39 19:55 19:55 WBC 12.4 H RBC 3.75 L Hgb Hct MCV 105.6 H MCH 35.4 H MPV 7.3 L Gran % 91.7 H Lymph % (Auto) 4.3 L Gran # 11.3 H Lymph # (Auto) 0.5 L Seg Neutrophils % Lymphocytes % RBC Morphology Macrocytosis ESR Chloride Carbon Dioxide BUN 50 H Creatinine 1.4 H Glucose 127 H Phosphorus Total Bilirubin Direct Bilirubin GGT AST C-Reactive Protein Albumin 3.1 L Globulin 4.8 H Albumin/Globulin Ratio 0.6 L Vitamin B12 Folate Urine Ketones 5/tr A Urine RBC 6 H 11/08/18 11/08/18 11/08/18 00:45 08:12 08:12 WBC 11.9 H RBC 2.72 L Hgb 9.6 L Hct 29.2 L MCV 107.3 H MCH 35.4 H MPV 7.2 L Gran % Lymph % (Auto) Gran # Lymph # (Auto) Seg Neutrophils % 87 H Lymphocytes % 9 L RBC Morphology Abnorm A Macrocytosis 2+ A ESR Chloride Carbon Dioxide BUN 43 H Creatinine 1.2 H Glucose Phosphorus 2.1 L Total Bilirubin 1.1 H Direct Bilirubin 0.5 H GGT 46 H AST 47 H C-Reactive Protein 7.2 H Albumin 3.1 L Globulin 4.2 H Albumin/Globulin Ratio 0.7 L Vitamin B12 > 2000 H Folate Urine Ketones Urine RBC 11/08/18 11/08/18 11/09/18 08:12 08:12 03:45 WBC RBC 3.26 L Hgb 11.6 L Hct 35.1 L MCV 107.8 H MCH 35.5 H MPV 7.2 L Gran % Lymph % (Auto) Gran # Lymph # (Auto) Seg Neutrophils % 88 H Lymphocytes % 7 L RBC Morphology Abnorm A Macrocytosis 2+ A ESR > 120 H Chloride Carbon Dioxide BUN Creatinine Glucose Phosphorus Total Bilirubin Direct Bilirubin GGT AST C-Reactive Protein Albumin Globulin Albumin/Globulin Ratio Vitamin B12 Folate > 20.0 H Urine Ketones Urine RBC 11/09/18 03:45 WBC RBC Hgb Hct MCV MCH MPV Gran % Lymph % (Auto) Gran # Lymph # (Auto) Seg Neutrophils % Lymphocytes % RBC Morphology Macrocytosis ESR Chloride 110 H Carbon Dioxide 18 L BUN 45 H Creatinine 1.3 H Glucose Phosphorus 2.1 L Total Bilirubin Direct Bilirubin GGT 47 H AST C-Reactive Protein 5.5 H Albumin 2.5 L Globulin 3.8 H Albumin/Globulin Ratio 0.7 L Vitamin B12 Folate Urine Ketones Urine RBC Microbiology: Microbiology 11/07/18 19:55 Blood Blood Culture - Preliminary Gram positive cocci 11/07/18 20:23 Blood Blood Culture - Preliminary Gram positive cocci 11/08/18 03:46 Nose MRSA (PCR) - Final Assessment and Plan - Narrative A/P Narrative: A: 1. Strept intermedius bacteremia: 2/2 sest on 11/07 - repeat blood Cx sent 11/08 pending - unsure of etiology as no obvious risk factor except for adv age - no intra-abd or chest abscesses per CT based imaging 2. Septic shock: resolved Recommendations: - Continue IV Ceftriaxone 2 gm q24 hrs - If repeat blood Cx from 11/08 NGTD at 48 hrs, a midline could be placed - will plan for at least 2 weeks of IV Ceftriaxone countng from 1st day of neg blood Cx - ID f/u details near discharge will follow Mario Muller MD Infectious diseases
[2018-11-10 05:54] LABS: Hemoglobin 10.2 g/dL (12.0-15.0); Mean Cell Volume 107.2 fL (80.0-100.0); Mean Corpuscular HGB Conc 33.1 g/dL (31.0-36.0); Mean Platelet Volume 7.2 fL (7.4-10.4); Platelet Count 141 K/mcL (140-440); RBC 2.89 M/mcL (4.00-5.20); Red Cell Distribution Width 13.4 % (11.5-14.5); WBC 6.1 K/mcL (4.5-11.0)
[2018-11-10] MEDS: 0.9 % SODIUM CHLORIDE 10 ML SYRINGE IV SCH ×5 (05:54→21:27)
[2018-11-10 06:15] LABS: ALT/SGPT 22 U/l (0-40); AST/SGOT 35 U/l (0-37); Albumin 2.3 gm/dL (3.2-5.2); Albumin/Globulin Ratio 0.7 (1.0-2.3); Alkaline Phosphatase 50 U/L (39-117); Bilirubin,Direct 0.2 mg/dL (0.0-0.3); Bilirubin,Total 0.6 mg/dL (0.0-1.0); Blood Urea Nitrogen 31 mg/dl (8-23); Calcium 8.3 mg/dl (8.6-10.4); Carbon Dioxide 21 mmol/L (22-30); Chloride 109 mmol/L (96-108); Globulin 3.3 gm/dL (2.2-3.7); Glomerular Filtration Rate 50; Glucose 104 mg/dL (70-105); Lactate Dehydrogenase 206 U/L (94-250); Phosphorous 1.5 mg/dL (2.7-4.5); Triglycerides 64 mg/dl (<150)
[2018-11-10 06:46] LABS: Eosinophils % (Manual) 4 % (0-7); Lymphocytes % 12 % (15-49); Macrocytosis 2+ (NONE SEEN); Monocytes % (Manual) 2 % (1-12); Platelet Estimate NORMAL (NORMAL); Polychromasia 1+ (NONE SEEN); RBC Morphology ABNORM (NORMAL); Segmented Neutrophils % 82 % (38-78)
[2018-11-10] MEDS: DOCUSATE SODIUM 100 MG CAPSULE PO SCH ×2 (09:08→21:25)
[2018-11-10] MEDS: CHLORHEXIDINE GLUCONATE 1 ML ORAL.SOL SSP SCH ×2 (09:09→21:26)
[2018-11-10] MEDS: NYSTATIN 500,000 UNITS/5 ML ORAL.SUSP SSW SCH ×2 (09:09→21:25)
[2018-11-10] MEDS ORDERED: PNEUMOCOCCAL 23-VAL P-SAC VAC 0.5 ML SYRINGE IM ONE (10:00)
[2018-11-10] MEDS: cefTRIAXone 2 GM in DEXTROSE 5% IN WATER 50 ML IV SCH (10:11)
--- NOTE | 2018-11-10 10:53 | Internal Med Progress Note ---
Medical - PN: Subj Patient information: Note initiated : 11/10/18 at 10:49 am Service Date, if different from initiated Date: [] Patient: Elisa Phan 88 y/o F admitted on 11/08/18 for fever. Chief Complaint: [] Interval history: Ms. Phan is a 88 year old F Who presents for weakness for 2 weeks. Family stated she had not had anything to eat or drink for [address] of the chest abdomen pelvis unremarkable for evidence of infection. She was mildly hypotensive in the ED. Showed improvement with fluids. ED work-up for source of infection unremarkable. Patient is a poor historian and quite drowsy. she states weakness for about 10 days along with some dyspnea. Mild sore throat and family thinks may be that is why she was not eating, per nurses. No diarrhea chest pain or coughing. No wounds or ulcers. Complain of some chills but denies fever. She has has had some headache but none for the past couple days. He admitted to dysuria, although urinalysis was unremarkable. She has a history of PAF and is on Xarelto and an old note from 2014 showed metoprolol but she does not recall why she was taken off as it is not on her home list. 11/08-patient bacteremic and septic shock. Systolics trending down to low 100s. Urine output less than 15 cc an hour. Status post index of 3000 cc crystalloid resuscitation. Initiate vasopressors. Multiple blood cultures positive for gram-positive cocci. ID consulted. On IV vancomycin. Received 1 dose of Rocephin/levofloxacin in the ER. Trend venous lactate 11/09-patient clinically improving with increased lucidity/able to communicate. Urine output improved to greater than 0.5 cc/kg body weight per hour. White count downtrending. Endorgan dysfunction clinically improved. Vasopressors titrating down to 3 mics Levophed. Unclear source. ID on board. Surveillance cultures pending. Lactic acid normalized. 11/10-patient doing well. Off pressors. White count downtrending from 12.4-6.1. Currently on Rocephin as per ID recommendations based on cultures positive for Streptococcus. Surveillance cultures negative so far. Renal function normalized with creatinine down to 1. Procalcitonin downtrending. Transfer to medical floor. - Constitutional Vitals: Vital Signs Temp Pulse Resp BP Pulse Ox 97.7 F 88 14 102/79 97 11/10/18 05:01 11/09/18 05:56 11/10/18 07:13 11/10/18 07:01 11/10/18 07:13 Period Temp Pulse Resp BP Sys/Gaspar Pulse Ox Last 24 Hr 97.7 F-98.9 F 11-27 85-116/63-88 95-100 Intake and Output 11/09/18 11/10/18 11/10/18 21:59 05:59 13:59 Intake Total 250 0 Output Total 188 435 100 Balance 62 -435 -100 Weight 110 lb 8 oz Intake & Output: Intake & Output 11/09/18 11/10/18 11/10/18 21:59 05:59 13:59 Intake Total 250 0 Output Total 188 435 100 Balance 62 -435 -100 Weight 110 lb 8 oz Intake: IV 50 Rocephin 2 gm In Dextrose 5% in 50 Water 50 ml @ 100 mls/hr IV Q24H [facility] Rx#:[id number] Oral 200 0 Output: Urine Catheter Amount 188 435 100 Other: Urine Appearance Sediment Fem Cath Clear Clear Urine Color Dark Yellow Dark Yellow Fem Cath Dark Yellow Pale General appearance: no acute distress Exam: Alert oriented Nonlabored breathing Poor dentition No anxiety Regular rhythm Medical - PN: Obj Da - Labs CBC & Chem 7: 11/10/18 03:32 11/10/18 03:32 Labs: Abnormal Lab Results 11/10/18 11/10/18 11/09/18 03:32 03:32 03:45 WBC RBC 2.89 L Hgb 10.2 L Hct 31.0 L MCV 107.2 H MCH 35.4 H MPV 7.2 L Gran % Lymph % (Auto) Gran # Lymph # (Auto) Seg Neutrophils % 82 H Lymphocytes % 12 L RBC Morphology Abnorm A Polychromasia 1+ A Macrocytosis 2+ A ESR Chloride 109 H 110 H Carbon Dioxide 21 L 18 L BUN 31 H 45 H Creatinine 1.3 H Glucose Calcium 8.3 L Phosphorus 1.5 L 2.1 L Total Bilirubin Direct Bilirubin GGT 47 H 47 H AST C-Reactive Protein 5.5 H Total Protein 5.6 L Albumin 2.3 L 2.5 L Globulin 3.8 H Albumin/Globulin Ratio 0.7 L 0.7 L Vitamin B12 Folate Urine Ketones Urine RBC 11/09/18 11/08/18 11/08/18 03:45 08:12 08:12 WBC RBC 3.26 L Hgb 11.6 L Hct 35.1 L MCV 107.8 H MCH 35.5 H MPV 7.2 L Gran % Lymph % (Auto) Gran # Lymph # (Auto) Seg Neutrophils % 88 H Lymphocytes % 7 L RBC Morphology Abnorm A Polychromasia Macrocytosis 2+ A ESR > 120 H Chloride Carbon Dioxide BUN Creatinine Glucose Calcium Phosphorus Total Bilirubin Direct Bilirubin GGT AST C-Reactive Protein Total Protein Albumin Globulin Albumin/Globulin Ratio Vitamin B12 Folate > 20.0 H Urine Ketones Urine RBC 11/08/18 11/08/18 11/08/18 08:12 08:12 00:45 WBC 11.9 H RBC 2.72 L Hgb 9.6 L Hct 29.2 L MCV 107.3 H MCH 35.4 H MPV 7.2 L Gran % Lymph % (Auto) Gran # Lymph # (Auto) Seg Neutrophils % 87 H Lymphocytes % 9 L RBC Morphology Abnorm A Polychromasia Macrocytosis 2+ A ESR Chloride Carbon Dioxide BUN 43 H Creatinine 1.2 H Glucose Calcium Phosphorus 2.1 L Total Bilirubin 1.1 H Direct Bilirubin 0.5 H GGT 46 H AST 47 H C-Reactive Protein 7.2 H Total Protein Albumin 3.1 L Globulin 4.2 H Albumin/Globulin Ratio 0.7 L Vitamin B12 > 2000 H Folate Urine Ketones Urine RBC 11/07/18 11/07/18 11/07/18 19:55 19:55 19:39 WBC 12.4 H RBC 3.75 L Hgb Hct MCV 105.6 H MCH 35.4 H MPV 7.3 L Gran % 91.7 H Lymph % (Auto) 4.3 L Gran # 11.3 H Lymph # (Auto) 0.5 L Seg Neutrophils % Lymphocytes % RBC Morphology Polychromasia Macrocytosis ESR Chloride Carbon Dioxide BUN 50 H Creatinine 1.4 H Glucose 127 H Calcium Phosphorus Total Bilirubin Direct Bilirubin GGT AST C-Reactive Protein Total Protein Albumin 3.1 L Globulin 4.8 H Albumin/Globulin Ratio 0.6 L Vitamin B12 Folate Urine Ketones 5/tr A Urine RBC 6 H Meds: Medications Acetaminophen (Tylenol) 650 mg PO Q6HP PRN PRN Reason: PAIN/FEVER > 101 Last Admin: 11/09/18 14:20 Dose: 650 mg Documented by: Albuterol/Ipratropium (Duoneb) 3 ml NEB Q4HP PRN PRN Reason: Shortness Of Breath Chlorhexidine Gluconate (Peridex) 15 ml SSP BID [facility] Last Admin: 11/10/18 09:09 Dose: 15 ml Documented by: Docusate Sodium (Colace) 100 mg PO BID [facility] Last Admin: 11/10/18 09:08 Dose: 100 mg Documented by: Famotidine (Pepcid) 20 mg IV HS [facility] Last Admin: 11/09/18 21:16 Dose: 20 mg Documented by: Potassium Chloride 40 meq/ (Dextrose) 520 mls @ 130 mls/hr IV UD PRN PRN Reason: Potassium < 3 Magnesium Sulfate (Magnesium Sulfate) 2 gm in 50 mls @ 50 mls/hr IV UD PRN PRN Reason: Magnesium </= 1.6 Norepinephrine Bitartrate 16 (mg/ Sodium Chloride) 250 mls @ 9.38 mls/hr IV Q24H [facility]; Protocol Last Admin: 11/09/18 17:34 Dose: Not Given Documented by: Ceftriaxone Sodium 2 gm/ (Dextrose) 50 mls @ 100 mls/hr IV Q24H [facility]; Protocol Last Admin: 11/10/18 10:11 Dose: 100 mls/hr Documented by: Lactulose (Cephulac) 10 gm PO DAILYP PRN PRN Reason: Constipation Metoclopramide HCl (Reglan) 10 mg IV Q6HP PRN PRN Reason: Nausea And Vomiting Nystatin (Nystatin) 500,000 units SSW BID [facility] Last Admin: 11/10/18 09:09 Dose: 500,000 units Documented by: Ondansetron HCl (Zofran) 4 mg IV Q4HP PRN PRN Reason: Nausea And Vomiting Polyethylene Glycol (Miralax) 17 gm PO DAILYP PRN PRN Reason: Constipation Potassium Chloride (Kdur) 40 meq PO UD PRN PRN Reason: Potssium is 3-3.5 Potassium Chloride (Kdur) 40 meq PO UD PRN PRN Reason: Potassium < 3 Rivaroxaban (Xarelto) 20 mg PO QPMCC [facility] Last Admin: 11/09/18 17:32 Dose: 20 mg Documented by: Senna (Senokot) 2 tab PO HSP PRN PRN Reason: Constipation Sodium Chloride (Saline Flush) 10 ml IV Q8 [facility] Last Admin: 11/10/18 10:14 Dose: 10 ml Documented by: Tramadol HCl (Ultram) 100 mg PO BIDP PRN PRN Reason: Pain Last Admin: 11/09/18 21:15 Dose: 100 mg Documented by: Medical - PN: A/P - Time Spent With Patient Total time spent is greater than 50% in coordination of care (as documented) at patient's floor/unit and/or counseling patient: 25 - 35 minutes (1) Septic shock Status: Acute Assessment and plan: * Septic shock-clinical improvement noted. Off vasopressors. Improved endorgan dysfunction. Map at goal. Unclear source , Streptococcus bacteremia. ID on board. Improving white count/procalcitonin/systolics. * Streptococcus bacteremia-continue IV Rocephin per ID, surveillance cultures negative so far * Atrial fibrillation currently rate controlled. CVA prophylaxis on Xarelto * Stage III CKD. Creatinine 1.3-> 1 * Encephalopathy-clinically resolved. * History of hypertension-medication on hold in light of septic shock * Iron deficiency anemia on iron supplements. * DVT prophylaxis on Xarelto Plan * Continue Rocephin * Transfer to medical floor * Anticoagulation * PT OT nutrition support * Discharge planning per case management Current Visit: Yes Medical - PN: Qual - VTE Deep Vein Thrombosis/Pulmonary Embolism Present on Admission: No
[2018-11-10] MEDS ORDERED: IPRATROPIUM/ALBUTEROL 3 ML AMPUL.NEB NEB PRN (14:25)
[2018-11-10] MEDS ORDERED: ONDANSETRON 4 MG/2 ML VIAL IV PRN (14:25)
[2018-11-10] MEDS ORDERED: METOCLOPRAMIDE 10 MG/2 ML VIAL IV PRN (14:25)
[2018-11-10] MEDS ORDERED: MAGNESIUM SULFATE 2 GM/50 ML BAG IV PRN (14:25)
[2018-11-10] MEDS ORDERED: POTASSIUM CHLORIDE 20 MEQ TABLET PO PRN ×2 (14:25)
[2018-11-10] MEDS ORDERED: POTASSIUM CHLORIDE 40 MEQ in DEXTROSE 5% IN WATER 500 ML IV PRN (14:25)
[2018-11-10] MEDS ORDERED: POLYETHYLENE GLYCOL 3350 17 GM PACKET PO PRN (14:25)
[2018-11-10] MEDS ORDERED: LACTULOSE 20 GM/30 ML ORAL.SOL PO PRN (14:25)
[2018-11-10] MEDS: ACETAMINOPHEN 325 MG TABLET PO PRN (17:02)
[2018-11-10] MEDS ORDERED: RIVAROXABAN 20 MG TABLET PO SCH (17:30)
[2018-11-10] MEDS ORDERED: SENNOSIDES 1 TABLET PO PRN (21:00)
[2018-11-10] MEDS: FAMOTIDINE/PF 20 MG/2 ML VIAL IV SCH (21:26)
[2018-11-10] MEDS: traMADol 50 MG TABLET PO PRN (22:39)
[2018-11-11] MEDS: 0.9 % SODIUM CHLORIDE 10 ML SYRINGE IV SCH ×3 (05:33→20:26)
[2018-11-11 05:54] LABS: Basophils # (Auto) 0 K/mcL (0.0-0.3); Basophils % (Auto) 0.2 % (0.0-2.0); Eosinophils # (Auto) 0.1 K/mcL (0.0-0.7); Eosinophils % (Auto) 1.4 % (0.0-7.0); Granulocytes % (Auto) 75.1 % (38.0-78.0); Hematocrit 36.8 % (36.0-48.0); Hemoglobin 12.1 g/dL (12.0-15.0); Lymphocytes # (Auto) 0.9 K/mcL (1.5-4.8); Lymphocytes % (Auto) 13.4 % (15.5-49.0); Mean Cell Volume 107.3 fL (80.0-100.0); Mean Corpuscular HGB Conc 32.9 g/dL (31.0-36.0); Mean Platelet Volume 7.2 fL (7.4-10.4); Monocytes # (Auto) 0.7 K/mcL (0.1-0.9); Monocytes % (Auto) 9.9 % (1.0-12.0); Platelet Count 174 K/mcL (140-440); RBC 3.43 M/mcL (4.00-5.20); Red Cell Distribution Width 13.2 % (11.5-14.5)
[2018-11-11] MEDS ORDERED: cefTRIAXone 2 GM VIAL ONE (09:08)
[2018-11-11] MEDS: CHLORHEXIDINE GLUCONATE 1 ML ORAL.SOL SSP SCH ×2 (09:27→20:25)
[2018-11-11] MEDS: cefTRIAXone 2 GM in DEXTROSE 5% IN WATER 50 ML IV SCH (09:27)
[2018-11-11] MEDS: NYSTATIN 500,000 UNITS/5 ML ORAL.SUSP SSW SCH ×2 (09:28→20:25)
[2018-11-11] MEDS: DOCUSATE SODIUM 100 MG CAPSULE PO SCH (09:28)
[2018-11-11] MEDS: traMADol 50 MG TABLET PO PRN (09:30)
--- NOTE | 2018-11-11 10:21 | Internal Med Progress Note ---
Medical - PN: Subj Patient information: Note initiated : 11/11/18 at 10:18 am Service Date, if different from initiated Date: [] Patient: Elisa Phan 88 y/o F admitted on 11/08/18 for fever. Chief Complaint: [] Interval history: Ms. Phan is a 88 year old F Who presents for weakness for 2 weeks. Family stated she had not had anything to eat or drink for [address] of the chest abdomen pelvis unremarkable for evidence of infection. She was mildly hypotensive in the ED. Showed improvement with fluids. ED work-up for source of infection unremarkable. Patient is a poor historian and quite drowsy. she states weakness for about 10 days along with some dyspnea. Mild sore throat and family thinks may be that is why she was not eating, per nurses. No diarrhea chest pain or coughing. No wounds or ulcers. Complain of some chills but denies fever. She has has had some headache but none for the past couple days. He admitted to dysuria, although urinalysis was unremarkable. She has a history of PAF and is on Xarelto and an old note from 2014 showed metoprolol but she does not recall why she was taken off as it is not on her home list. 11/08-patient bacteremic and septic shock. Systolics trending down to low 100s. Urine output less than 15 cc an hour. Status post index of 3000 cc crystalloid resuscitation. Initiate vasopressors. Multiple blood cultures positive for gram-positive cocci. ID consulted. On IV vancomycin. Received 1 dose of Rocephin/levofloxacin in the ER. Trend venous lactate 11/09-patient clinically improving with increased lucidity/able to communicate. Urine output improved to greater than 0.5 cc/kg body weight per hour. White count downtrending. Endorgan dysfunction clinically improved. Vasopressors titrating down to 3 mics Levophed. Unclear source. ID on board. Surveillance cultures pending. Lactic acid normalized. 11/10-patient doing well. Off pressors. White count downtrending from 12.4-6.1. Currently on Rocephin as per ID recommendations based on cultures positive for Streptococcus. Surveillance cultures negative so far. Renal function normalized with creatinine down to 1. Procalcitonin downtrending. Transfer to medical floor. 11/11-doing well. Surveillance cultures negative so far. Remained afebrile. Hemodynamic stable. White count downtrending. On Rocephin. Strep intermedius bacteremia currently on antibiotics. Unclear etiology as yet. Anticipate 2 weeks of antibiotic coverage per ID recommendations. Creatinine at 1. Possible discharge in 24 hours - Constitutional Vitals: Vital Signs Temp Pulse Resp BP Pulse Ox 97.5 F 79 16 101/69 99 11/11/18 07:13 11/11/18 04:17 11/11/18 07:13 11/11/18 07:13 11/11/18 07:13 Period Temp Pulse Resp BP Sys/Gaspar Pulse Ox Last 24 Hr 97.4 F-100.8 F 75-79 16-26 97-117/66-82 93-99 Intake and Output 11/10/18 11/11/18 11/11/18 21:59 05:59 13:59 Intake Total 360 100 Output Total 251 600 Balance 109 -500 Weight 110 lb 8 oz Intake & Output: Intake & Output 11/10/18 11/11/18 11/11/18 21:59 05:59 13:59 Intake Total 360 100 Output Total 251 600 Balance 109 -500 Weight 110 lb 8 oz Intake: Oral 360 100 Output: Void Amount 250 600 # of times incontinent of urine 1 Other: Meal Dinner Percent of Meal Consumed 50% Feeding Ability Assist with Tray Set Up Urine Appearance Clear Urine Color Bright Yellow Stool Size Moderate Moderate Stool Color Brown Black Stool Consistency Soft Loose # Bowel Movements 1 General appearance: no acute distress Exam: Alert oriented Nonlabored breathing Tolerating diet and ambulating No anxiety Medical - PN: Obj Da - Labs CBC & Chem 7: 11/11/18 04:08 11/10/18 03:32 Labs: Abnormal Lab Results 11/11/18 11/10/18 11/10/18 04:08 03:32 03:32 RBC 3.43 L 2.89 L Hgb 10.2 L Hct 31.0 L MCV 107.3 H 107.2 H MCH 35.3 H 35.4 H MPV 7.2 L 7.2 L Lymph % (Auto) 13.4 L Lymph # (Auto) 0.9 L Seg Neutrophils % 82 H Lymphocytes % 12 L RBC Morphology Abnorm A Polychromasia 1+ A Macrocytosis 2+ A ESR Chloride 109 H Carbon Dioxide 21 L BUN 31 H Creatinine Calcium 8.3 L Phosphorus 1.5 L GGT 47 H C-Reactive Protein Total Protein 5.6 L Albumin 2.3 L Globulin Albumin/Globulin Ratio 0.7 L 11/09/18 11/09/18 11/08/18 03:45 03:45 08:12 RBC 3.26 L Hgb 11.6 L Hct 35.1 L MCV 107.8 H MCH 35.5 H MPV 7.2 L Lymph % (Auto) Lymph # (Auto) Seg Neutrophils % 88 H Lymphocytes % 7 L RBC Morphology Abnorm A Polychromasia Macrocytosis 2+ A ESR > 120 H Chloride 110 H Carbon Dioxide 18 L BUN 45 H Creatinine 1.3 H Calcium Phosphorus 2.1 L GGT 47 H C-Reactive Protein 5.5 H Total Protein Albumin 2.5 L Globulin 3.8 H Albumin/Globulin Ratio 0.7 L Meds: Medications Acetaminophen (Tylenol) 650 mg PO Q6HP PRN PRN Reason: PAIN/FEVER > 101 Last Admin: 11/10/18 17:02 Dose: 650 mg Documented by: Albuterol/Ipratropium (Duoneb) 3 ml NEB Q4HP PRN PRN Reason: Shortness Of Breath Chlorhexidine Gluconate (Peridex) 15 ml SSP BID [facility] Last Admin: 11/11/18 09:27 Dose: 15 ml Documented by: Docusate Sodium (Colace) 100 mg PO BID [facility] Last Admin: 11/11/18 09:28 Dose: Not Given Documented by: Famotidine (Pepcid) 20 mg IV HS [facility] Last Admin: 11/10/18 21:26 Dose: 20 mg Documented by: Ceftriaxone Sodium 2 gm/ (Dextrose) 50 mls @ 100 mls/hr IV DAILY [facility]; Protocol Last Admin: 11/11/18 09:27 Dose: 100 mls/hr Documented by: Potassium Chloride 40 meq/ (Dextrose) 520 mls @ 130 mls/hr IV UD PRN PRN Reason: Potassium < 3 Magnesium Sulfate (Magnesium Sulfate) 2 gm in 50 mls @ 50 mls/hr IV UD PRN PRN Reason: Magnesium </= 1.6 Lactulose (Cephulac) 10 gm PO DAILYP PRN PRN Reason: Constipation Metoclopramide HCl (Reglan) 10 mg IV Q6HP PRN PRN Reason: Nausea And Vomiting Nystatin (Nystatin) 500,000 units SSW BID [facility] Last Admin: 11/11/18 09:28 Dose: 500,000 units Documented by: Ondansetron HCl (Zofran) 4 mg IV Q4HP PRN PRN Reason: Nausea And Vomiting Polyethylene Glycol (Miralax) 17 gm PO DAILYP PRN PRN Reason: Constipation Potassium Chloride (Kdur) 40 meq PO UD PRN PRN Reason: Potssium is 3-3.5 Potassium Chloride (Kdur) 40 meq PO UD PRN PRN Reason: Potassium < 3 Senna (Senokot) 2 tab PO HSP PRN PRN Reason: Constipation Sodium Chloride (Saline Flush) 10 ml IV Q8 [facility] Last Admin: 11/11/18 05:33 Dose: 10 ml Documented by: Tramadol HCl (Ultram) 100 mg PO BIDP PRN PRN Reason: Pain Last Admin: 11/11/18 09:30 Dose: 100 mg Documented by: Medical - PN: A/P - Time Spent With Patient Total time spent is greater than 50% in coordination of care (as documented) at patient's floor/unit and/or counseling patient: 25 - 35 minutes (1) Septic shock Status: Acute Assessment and plan: * Septic shock-clinically resolved. Off vasopressors. Improved endorgan dysfunction. Unclear source , Streptococcus intermedius bacteremia. On Rocephin * Streptococcus intermedius bacteremia-continue IV Rocephin per ID, surveillance cultures negative so far. Target 2 weeks antibiotic * Atrial fibrillation currently rate controlled. CVA prophylaxis on Xarelto * Stage III CKD. Creatinine normalized 1.3-> 1 * Encephalopathy-clinically resolved. * History of hypertension-restart home meds once systolics over 130 * Iron deficiency anemia on iron supplements. * DVT prophylaxis on Xarelto Plan * Continue antibiotics per ID * Prior current medical condition management on home meds * PT OT/nutrition support * Discharge planning per case management Current Visit: Yes Medical - PN: Qual - VTE Deep Vein Thrombosis/Pulmonary Embolism Present on Admission: No
[2018-11-11] MEDS: ACETAMINOPHEN 325 MG TABLET PO PRN (20:25)
[2018-11-11] MEDS: FAMOTIDINE/PF 20 MG/2 ML VIAL IV SCH (20:25)
[2018-11-11] MEDS ORDERED: DOCUSATE SODIUM 100 MG CAPSULE PO PRN (21:00)
[2018-11-12] MEDS: traMADol 50 MG TABLET PO PRN ×2 (04:03→09:04)
[2018-11-12] MEDS: 0.9 % SODIUM CHLORIDE 10 ML SYRINGE IV SCH ×3 (04:03→21:45)
[2018-11-12] MEDS: cefTRIAXone 2 GM in DEXTROSE 5% IN WATER 50 ML IV SCH (09:03)
[2018-11-12] MEDS: CHLORHEXIDINE GLUCONATE 1 ML ORAL.SOL SSP SCH ×2 (09:03→21:45)
[2018-11-12] MEDS: NYSTATIN 500,000 UNITS/5 ML ORAL.SUSP SSW SCH ×2 (09:04→21:44)
[2018-11-12 11:29] LABS: Basophils # (Auto) 0 K/mcL (0.0-0.3); Basophils % (Auto) 0.2 % (0.0-2.0); Eosinophils # (Auto) 0.1 K/mcL (0.0-0.7); Hematocrit 36.8 % (36.0-48.0); Lymphocytes # (Auto) 0.8 K/mcL (1.5-4.8); Lymphocytes % (Auto) 11.1 % (15.5-49.0); Mean Cell Volume 107.8 fL (80.0-100.0); Mean Corpuscular HGB Conc 32.6 g/dL (31.0-36.0); Mean Platelet Volume 7.3 fL (7.4-10.4); Monocytes # (Auto) 0.6 K/mcL (0.1-0.9); Monocytes % (Auto) 7.7 % (1.0-12.0); Platelet Count 165 K/mcL (140-440); RBC 3.41 M/mcL (4.00-5.20); Red Cell Distribution Width 13.7 % (11.5-14.5); WBC 7.3 K/mcL (4.5-11.0)
--- NOTE | 2018-11-12 12:00 | XRay Report ---
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 There is no fracture and no reabsorption of bone around the hardware. No joint effusion is detected. The bones are normally mineralized. IMPRESSION: Normal exam Interpreted and Authenticated by: Jl Espinosa 11/12/18
[2018-11-12 12:47] LABS: ALT/SGPT 22 U/l (0-40); AST/SGOT 30 U/l (0-37); Albumin 2.5 gm/dL (3.2-5.2); Albumin/Globulin Ratio 0.7 (1.0-2.3); Alkaline Phosphatase 58 U/L (39-117); Bilirubin,Direct 0.3 mg/dL (0.0-0.3); Bilirubin,Total 0.6 mg/dL (0.0-1.0); Blood Urea Nitrogen 21 mg/dl (8-23); Carbon Dioxide 22 mmol/L (22-30); Chloride 100 mmol/L (96-108); Globulin 3.8 gm/dL (2.2-3.7); Glomerular Filtration Rate 57; Glucose 118 mg/dL (70-105); Lactate Dehydrogenase 227 U/L (94-250); Triglycerides 80 mg/dl (<150); Uric Acid 5.8 mg/dL (2.5-8.0)
--- NOTE | 2018-11-12 14:21 | XRay Report ---
HISTORY: Knee swelling FINDINGS: Patient has well positioned total knee prosthesis. There is no loosening of the prosthesis. No fracture or bone erosion are present. There are periarticular soft tissue calcifications along the medial side of the joint which may be from prior surgery or previous injury. There may be a very small suprapatellar joint effusion. IMPRESSION: Possible small joint effusion. No evidence of osteomyelitis Interpreted and Authenticated by: Jl Espinosa 11/12/18
--- NOTE | 2018-11-12 14:32 | Infectious Disease Prog Note ---
Subjective Patient information: Note initiated : 11/12/18 at 2:10 pm Service Date, if different from initiated Date: [] Patient: Elisa Phan 88 y/o F admitted on 11/08/18 for fever. Chief Complaint: [] Interval history: Pt slightly confused but following the conversation appropriately. Denied any fever, chills. Endorsed some left knee pain since she has been hospitalized. Discussed blood cultures results, midline placement and antibiotics duration. Objective Objective Narrative: alert, awake, oriented to person and place no thrush chest cta except for decreased BS at b/l lung bases s1 s2 normal bs ++ nttd left knee: pain on active movement, not swollen, no redness or warmth no leg edema - Vital Signs Vital signs: Vital Signs Temp Pulse Resp BP Pulse Ox 11/12/18 13:52 37.1 C 70 18 128/77 95 11/12/18 08:00 36.6 C 65 18 115/79 97 11/12/18 04:00 36.6 C 72 22 91/65 97 11/12/18 00:00 36.7 C 69 16 98/54 96 11/11/18 20:00 37.4 C H 86 20 104/78 93 11/11/18 17:02 37.0 C 20 107/71 97 Intake and Output 11/12/18 11/12/18 11/12/18 05:59 13:59 21:59 Intake Total 50 Output Total 251 Balance -251 50 Intake: IV 50 Rocephin 2 gm In Dextrose 5% in 50 Water 50 ml @ 100 mls/hr IV DAILY [facility] Rx#:[id number] Output: Void Amount 250 # of times incontinent of urine 1 Other: Urine Appearance Clear Clear Urine Color Light Sharron Light Sharron Urine Odor Strong Intake & Output: Intake & Output 11/12/18 11/12/18 11/12/18 05:59 13:59 21:59 Intake Total 50 Output Total 251 Balance -251 50 Intake: IV 50 Rocephin 2 gm In Dextrose 5% in 50 Water 50 ml @ 100 mls/hr IV DAILY [facility] Rx#:[id number] Output: Void Amount 250 # of times incontinent of urine 1 Other: Urine Appearance Clear Clear Urine Color Light Sharron Light Sharron Urine Odor Strong - Lab 11/12/18 09:03 11/12/18 09:03 Most recent lab results Calcium 9.0 mg/dl (8.6-10.4) 11/12/18 09:03 Phosphorus 2.0 mg/dL (2.7-4.5) L 11/12/18 09:03 Magnesium 2.0 mg/dL (1.6-2.5) 11/12/18 09:03 Microbiology 11/09/18 11:06 Blood Blood Culture - Preliminary 11/09/18 11:25 Blood Blood Culture - Preliminary 11/11/18 08:28 Blood Blood Culture - Preliminary 11/11/18 08:18 Blood Blood Culture - Preliminary 11/07/18 20:23 Blood Blood Culture - Final Streptococcus intermedius 11/07/18 19:55 Blood Blood Culture - Final Streptococcus intermedius 11/08/18 14:05 Blood Blood Culture - Preliminary 11/08/18 13:59 Blood Blood Culture - Preliminary 11/08/18 03:46 Nose MRSA (PCR) - Final Medications Active Medications: Acetaminophen (Tylenol) 650 mg PO Q6HP PRN PRN Reason: PAIN/FEVER > 101 Last Admin: 11/11/18 20:25 Dose: 650 mg Documented by: Admin: 11/10/18 17:02 Dose: 650 mg Documented by: LATRosie Albuterol/Ipratropium (Duoneb) 3 ml NEB Q4HP PRN PRN Reason: Shortness Of Breath Chlorhexidine Gluconate (Peridex) 15 ml SSP BID [facility] Last Admin: 11/12/18 09:03 Dose: 15 ml Documented by: [email or web address] Admin: 11/11/18 20:25 Dose: 15 ml Documented by: Admin: 11/11/18 09:27 Dose: 15 ml Documented by: IRINAORTHRUTom Admin: 11/10/18 21:26 Dose: 15 ml Documented by: TERESA Docusate Sodium (Colace) 100 mg PO BIDP PRN PRN Reason: Constipation Famotidine (Pepcid) 20 mg IV HS [facility] Last Admin: 11/11/18 20:25 Dose: 20 mg Documented by: Admin: 11/10/18 21:26 Dose: 20 mg Documented by: TERESA Ceftriaxone Sodium 2 gm/ (Dextrose) 50 mls @ 100 mls/hr IV DAILY [facility]; Protocol Last Infusion: 11/12/18 09:33 Dose: 0 mls/hr Documented by: Admin: 11/12/18 09:03 Dose: 100 mls/hr Documented by: Infusion: 11/11/18 10:30 Dose: 100 mls/hr Documented by: Admin: 11/11/18 09:27 Dose: 100 mls/hr Documented by: LUCA Potassium Chloride 40 meq/ (Dextrose) 520 mls @ 130 mls/hr IV UD PRN PRN Reason: Potassium < 3 Magnesium Sulfate (Magnesium Sulfate) 2 gm in 50 mls @ 50 mls/hr IV UD PRN PRN Reason: Magnesium </= 1.6 Lactulose (Cephulac) 10 gm PO DAILYP PRN PRN Reason: Constipation Metoclopramide HCl (Reglan) 10 mg IV Q6HP PRN PRN Reason: Nausea And Vomiting Nystatin (Nystatin) 500,000 units SSW BID [facility] Admin: 11/12/18 09:04 Dose: 500,000 units Documented by: Admin: 11/11/18 20:25 Dose: 500,000 units Documented by: Admin: 11/11/18 09:28 Dose: 500,000 units Documented by: Admin: 11/10/18 21:25 Dose: 500,000 units Documented by: TERESA Ondansetron HCl (Zofran) 4 mg IV Q4HP PRN PRN Reason: Nausea And Vomiting Polyethylene Glycol (Miralax) 17 gm PO DAILYP PRN PRN Reason: Constipation Potassium Chloride (Kdur) 40 meq PO UD PRN PRN Reason: Potssium is 3-3.5 Potassium Chloride (Kdur) 40 meq PO UD PRN PRN Reason: Potassium < 3 Rivaroxaban (Xarelto) 20 mg PO QPMCC [facility] Senna (Senokot) 2 tab PO HSP PRN PRN Reason: Constipation Sodium Chloride (Saline Flush) 10 ml IV Q8 [facility] Last Admin: 11/12/18 13:44 Dose: 10 ml Documented by: Admin: 11/12/18 04:03 Dose: 10 ml Documented by: Admin: 11/11/18 20:26 Dose: 10 ml Documented by: Admin: 11/11/18 14:21 Dose: 10 ml Documented by: Admin: 11/11/18 05:33 Dose: 10 ml Documented by: Admin: 11/10/18 21:27 Dose: 10 ml Documented by: TERESA Tramadol HCl (Ultram) 100 mg PO BIDP PRN PRN Reason: Pain Last Admin: 11/12/18 09:04 Dose: 100 mg Documented by: [email or web address] Admin: 11/12/18 04:03 Dose: 100 mg Documented by: Admin: 11/11/18 09:30 Dose: 100 mg Documented by: Admin: 11/10/18 22:39 Dose: 100 mg Documented by: TERESA Assessment and Plan - Narrative A/P Narrative: A: 1. Strept intermedius bacteremia: 2/2 sest on 11/07 - repeat blood Cx sent 11/08 pending - unsure of etiology as no obvious risk factor except for adv age - no intra-abd or chest abscesses per CT based imaging 2. Septic shock: resolved 3. Left knee pain: xray with 3views normal, no effusion. Prosthesis in place without any loosening Recommendations: - consider midline placement for post-discharge IV Ceftriaxone - Continue IV Ceftriaxone 2 gm q24 hrs until 11/21/18 to finish a 2 week course - No ID f/u needed Mario Muller MD Infectious diseases
[2018-11-12] MEDS ORDERED: RIVAROXABAN 20 MG TABLET PO SCH (17:30)
--- NOTE | 2018-11-12 20:27 | Internal Med Progress Note ---
Medical - PN: Subj Patient information: Note initiated : 11/12/18 at 8:24 pm Service Date, if different from initiated Date: [] Patient: Elisa Phan 88 y/o F admitted on 11/08/18 for fever. Chief Complaint: [] Interval history: Ms. Phan is a 88 year old F Who presents for weakness for 2 weeks. Family stated she had not had anything to eat or drink for [address] of the chest abdomen pelvis unremarkable for evidence of infection. She was mildly hypotensive in the ED. Showed improvement with fluids. ED work-up for source of infection unremarkable. Patient is a poor historian and quite drowsy. she states weakness for about 10 days along with some dyspnea. Mild sore throat and family thinks may be that is why she was not eating, per nurses. No diarrhea chest pain or coughing. No wounds or ulcers. Complain of some chills but denies fever. She has has had some headache but none for the past couple days. He admitted to dysuria, although urinalysis was unremarkable. She has a history of PAF and is on Xarelto and an old note from 2014 showed metoprolol but she does not recall why she was taken off as it is not on her home list. 11/08-patient bacteremic and septic shock. Systolics trending down to low 100s. Urine output less than 15 cc an hour. Status post index of 3000 cc crystalloid resuscitation. Initiate vasopressors. Multiple blood cultures positive for gram-positive cocci. ID consulted. On IV vancomycin. Received 1 dose of Rocephin/levofloxacin in the ER. Trend venous lactate 11/09-patient clinically improving with increased lucidity/able to communicate. Urine output improved to greater than 0.5 cc/kg body weight per hour. White count downtrending. Endorgan dysfunction clinically improved. Vasopressors titrating down to 3 mics Levophed. Unclear source. ID on board. Surveillance cultures pending. Lactic acid normalized. 11/10-patient doing well. Off pressors. White count downtrending from 12.4-6.1. Currently on Rocephin as per ID recommendations based on cultures positive for Streptococcus. Surveillance cultures negative so far. Renal function normalized with creatinine down to 1. Procalcitonin downtrending. Transfer to medical floor. 11/11-doing well. Surveillance cultures negative so far. Remained afebrile. Hemodynamic stable. White count downtrending. On Rocephin. Strep intermedius bacteremia currently on antibiotics. Unclear etiology as yet. Anticipate 2 weeks of antibiotic coverage per ID recommendations. Creatinine at 1. Possible discharge in 24 hours 11/12-patient doing well. Minimal left knee effusion on imaging. On antibiotic coverage. Midline being placed for IV Rocephin to be continued through 11/22. No overnight fever chills. No concerns per staff. Creatinine normalized 0.9. - Constitutional Vitals: Vital Signs Temp Pulse Resp BP Pulse Ox 98.6 F 81 20 115/81 97 11/12/18 19:55 11/12/18 19:55 11/12/18 19:55 11/12/18 19:55 11/12/18 19:55 Period Temp Pulse Resp BP Sys/Gaspar Pulse Ox Last 24 Hr 97.8 F-98.9 F 65-81 16-22 91-128/54-81 95-98 Intake and Output 11/12/18 11/12/18 11/12/18 05:59 13:59 21:59 Intake Total 290 Output Total 251 Balance -251 290 Weight 109 lb Patient Weight 11/13/18 05:59 Weight 109 lb Intake & Output: Intake & Output 11/12/18 11/12/18 11/12/18 05:59 13:59 21:59 Intake Total 290 Output Total 251 Balance -251 290 Weight 109 lb Intake: IV 50 Rocephin 2 gm In Dextrose 5% in 50 Water 50 ml @ 100 mls/hr IV DAILY [facility] Rx#:[id number] Oral 240 Output: Void Amount 250 # of times incontinent of urine 1 Other: Meal Breakfast broth Percent of Meal Consumed 50% 50% Feeding Ability Independent Independent Urine Appearance Clear Clear Urine Color Light Sharron Light Sharron Urine Odor Strong General appearance: no acute distress Exam: Alert oriented Minimal left knee swelling Nondistended abdomen No anxiety Medical - PN: Obj Da - Labs CBC & Chem 7: 11/12/18 09:03 11/12/18 09:03 Labs: Abnormal Lab Results 11/12/18 11/12/18 11/11/18 09:03 09:03 04:08 RBC 3.41 L 3.43 L Hgb Hct MCV 107.8 H 107.3 H MCH 35.2 H 35.3 H MPV 7.3 L 7.2 L Gran % 80.0 H Lymph % (Auto) 11.1 L 13.4 L Lymph # (Auto) 0.8 L 0.9 L Seg Neutrophils % Lymphocytes % RBC Morphology Polychromasia Macrocytosis Chloride Carbon Dioxide BUN Glucose 118 H Calcium Phosphorus 2.0 L GGT 51 H Total Protein Albumin 2.5 L Globulin 3.8 H Albumin/Globulin Ratio 0.7 L 11/10/18 11/10/18 03:32 03:32 RBC 2.89 L Hgb 10.2 L Hct 31.0 L MCV 107.2 H MCH 35.4 H MPV 7.2 L Gran % Lymph % (Auto) Lymph # (Auto) Seg Neutrophils % 82 H Lymphocytes % 12 L RBC Morphology Abnorm A Polychromasia 1+ A Macrocytosis 2+ A Chloride 109 H Carbon Dioxide 21 L BUN 31 H Glucose Calcium 8.3 L Phosphorus 1.5 L GGT 47 H Total Protein 5.6 L Albumin 2.3 L Globulin Albumin/Globulin Ratio 0.7 L Meds: Medications Acetaminophen (Tylenol) 650 mg PO Q6HP PRN PRN Reason: PAIN/FEVER > 101 Last Admin: 11/11/18 20:25 Dose: 650 mg Documented by: Albuterol/Ipratropium (Duoneb) 3 ml NEB Q4HP PRN PRN Reason: Shortness Of Breath Chlorhexidine Gluconate (Peridex) 15 ml SSP BID [facility] Last Admin: 11/12/18 09:03 Dose: 15 ml Documented by: Docusate Sodium (Colace) 100 mg PO BIDP PRN PRN Reason: Constipation Famotidine (Pepcid) 20 mg IV HS [facility] Last Admin: 11/11/18 20:25 Dose: 20 mg Documented by: Ceftriaxone Sodium 2 gm/ (Dextrose) 50 mls @ 100 mls/hr IV DAILY [facility]; Protocol Last Infusion: 11/12/18 09:33 Dose: Infused Documented by: Potassium Chloride 40 meq/ (Dextrose) 520 mls @ 130 mls/hr IV UD PRN PRN Reason: Potassium < 3 Magnesium Sulfate (Magnesium Sulfate) 2 gm in 50 mls @ 50 mls/hr IV UD PRN PRN Reason: Magnesium </= 1.6 Lactulose (Cephulac) 10 gm PO DAILYP PRN PRN Reason: Constipation Metoclopramide HCl (Reglan) 10 mg IV Q6HP PRN PRN Reason: Nausea And Vomiting Nystatin (Nystatin) 500,000 units SSW BID [facility] Last Admin: 11/12/18 09:04 Dose: 500,000 units Documented by: Ondansetron HCl (Zofran) 4 mg IV Q4HP PRN PRN Reason: Nausea And Vomiting Polyethylene Glycol (Miralax) 17 gm PO DAILYP PRN PRN Reason: Constipation Potassium Chloride (Kdur) 40 meq PO UD PRN PRN Reason: Potssium is 3-3.5 Potassium Chloride (Kdur) 40 meq PO UD PRN PRN Reason: Potassium < 3 Rivaroxaban (Xarelto) 20 mg PO QPMCC [facility] Last Admin: 11/12/18 16:18 Dose: 20 mg Documented by: Senna (Senokot) 2 tab PO HSP PRN PRN Reason: Constipation Sodium Chloride (Saline Flush) 10 ml IV Q8 [facility] Last Admin: 11/12/18 13:44 Dose: 10 ml Documented by: Tramadol HCl (Ultram) 100 mg PO BIDP PRN PRN Reason: Pain Last Admin: 11/12/18 09:04 Dose: 100 mg Documented by: Medical - PN: A/P - Time Spent With Patient Total time spent is greater than 50% in coordination of care (as documented) at patient's floor/unit and/or counseling patient: 25 - 35 minutes (1) Septic shock Status: Acute Assessment and plan: * Streptococcus intermedius bacteremia-continue IV Rocephin per ID, surveillance cultures negative so far. * Septic shock-clinically resolved. Off vasopressors. Improved endorgan dysfunction. Unclear source , Streptococcus intermedius bacteremia. On Rocephin * Left knee effusion. Arthrocentesis in a.m. * Atrial fibrillation currently rate controlled. CVA prophylaxis on Xarelto * Stage III CKD. Creatinine normalized 1.3-> 0.9 * Encephalopathy-clinically resolved. * History of hypertension-restart home meds once systolics over 130 * Iron deficiency anemia on iron supplements. * DVT prophylaxis on Xarelto Plan * Continue antibiotics per ID * Arthrocentesis left knee * Prior current medical condition management on home meds * PT OT/nutrition support * Discharge planning per case management Current Visit: Yes Medical - PN: Qual - VTE Deep Vein Thrombosis/Pulmonary Embolism Present on Admission: No
[2018-11-12] MEDS: FAMOTIDINE/PF 20 MG/2 ML VIAL IV SCH (21:45)
[2018-11-13] MEDS: ACETAMINOPHEN 325 MG TABLET PO PRN (03:41)
[2018-11-13] MEDS: 0.9 % SODIUM CHLORIDE 10 ML SYRINGE IV SCH (05:50)
[2018-11-13] MEDS ORDERED: cefTRIAXone 2 GM VIAL ONE (08:51)
[2018-11-13] MEDS: CHLORHEXIDINE GLUCONATE 1 ML ORAL.SOL SSP SCH (08:59)
[2018-11-13] MEDS: cefTRIAXone 2 GM in DEXTROSE 5% IN WATER 50 ML IV SCH ×2 (09:04→09:20)
[2018-11-13] MEDS: NYSTATIN 500,000 UNITS/5 ML ORAL.SUSP SSW SCH (09:34)
--- NOTE | 2018-11-13 13:28 | Discharge Summary ---
Medical - DS: Prov Patient information: Note initiated : 11/13/18 at 1:26 pm Service Date, if different from initiated Date: [] Patient: Elisa Phan 88 y/o F admitted on 11/08/18 for fever. Chief Complaint: [] Date of admission: 11/08/18 02:57 Discharge date: 11/13/18 Primary care physician: Mick Lucero Consults: 11/08/18 02:24 Consult to Physician [CONS] Routine Comment: Consulting Provider: Shane Luna Reason For Exam: Physician to Consult 11/08/18 11:29 Consult to Physician [CONS] Routine Comment: bacteremia Consulting Provider: Mario Muller Reason For Exam: Physician to Consult Medical - DS: Meds - Discharge Medications Prescriptions: cefTRIAXone [Rocephin] 2 gm IV DAILY #9 vial Transmission Status: Pending to [facility] Active and Home Medications: Home Medications tramadol 50 mg tablet 100 mg PO BID #180 tab 09/30/14 [Rx Confirmed 11/08/18 Last Taken Unknown] Rivaroxaban [Xarelto] 20 mg PO DAILY 10/25/14 [History Confirmed 11/08/18 Last Taken Unknown] Spironolactone [Aldactone] 25 mg PO DAILY 10/25/14 [History Confirmed 11/08/18 Last Taken Unknown] Iron 65 mg PO DAILY 11/08/18 [History Confirmed 11/08/18 Last Taken Unknown] Meloxicam [Mobic] 7.5 mg PO DAILY 11/08/18 [History Confirmed 11/08/18 Last Taken Unknown] cefTRIAXone [Rocephin] 2 gm IV DAILY #9 vial 11/13/18 [Rx Last Taken Unknown] Medical - DS: Hosp Hospital Course: Discharge diagnosis * Streptococcus intermedius bacteremia-continue IV Rocephin per ID through 11/22, surveillance cultures negative so far. No obvious source identified * Septic shock secondary to Streptococcus intermedius bacteremia-clinically resolved. Off vasopressors. Clinically resolved. Improved endorgan dysfunction. Unclear source * Right knee effusion. Status post arthrocentesis. Discharging with advised to follow-up with ID as outpatient. Await arthrocentesis results * Atrial fibrillation currently rate controlled. CVA prophylaxis on Xarelto * Stage III CKD. Creatinine normalized 1.3-> 0.9 * Encephalopathy-clinically resolved. * History of hypertension - continue home meds * Iron deficiency anemia on iron supplements. Brief hospital course Ms. Phan is a 88 year old F Who presents for weakness for 2 weeks. Family stated she had not had anything to eat or drink for [address] of the chest abdomen pelvis unremarkable for evidence of infection. She was mildly hypotensive in the ED. Showed improvement with fluids. ED work-up for source of infection unremarkable. Patient is a poor historian and quite drowsy. she states weakness for about 10 days along with some dyspnea. Mild sore throat and family thinks may be that is why she was not eating, per nurses. No diarrhea chest pain or coughing. No wounds or ulcers. Complain of some chills but denies fever. She has has had some headache but none for the past couple days. He admitted to dysuria, although urinalysis was unremarkable. She has a history of PAF and is on Xarelto and an old note from 2014 showed metoprolol but she does not recall why she was taken off as it is not on her home list. 11/08-patient bacteremic and septic shock. Systolics trending down to low 100s. Urine output less than 15 cc an hour. Status post index of 3000 cc crystalloid resuscitation. Initiate vasopressors. Multiple blood cultures positive for gram-positive cocci. ID consulted. On IV vancomycin. Received 1 dose of Rocephin/levofloxacin in the ER. Trend venous lactate 11/09-patient clinically improving with increased lucidity/able to communicate. Urine output improved to greater than 0.5 cc/kg body weight per hour. White count downtrending. Endorgan dysfunction clinically improved. Vasopressors titrating down to 3 mics Levophed. Unclear source. ID on board. Surveillance cultures pending. Lactic acid normalized. 11/10-patient doing well. Off pressors. White count downtrending from 12.4-6.1. Currently on Rocephin as per ID recommendations based on cultures positive for Streptococcus. Surveillance cultures negative so far. Renal function normalized with creatinine down to 1. Procalcitonin downtrending. Transfer to medical floor. 11/11-doing well. Surveillance cultures negative so far. Remained afebrile. Hemodynamic stable. White count downtrending. On Rocephin. Strep intermedius bacteremia currently on antibiotics. Unclear etiology as yet. Anticipate 2 weeks of antibiotic coverage per ID recommendations. Creatinine at 1. Possible discharge in 24 hours 11/12-patient doing well. Minimal left knee effusion on imaging. On antibiotic coverage. Midline being placed for IV Rocephin to be continued through 11/22. No overnight fever chills. No concerns per staff. Creatinine normalized 0.9. Discharge diagnosis: . - Time Spent with Patient Total time spent providing and/or coordinating discharge services: Greater than 30 minutes Medical - DS: Exam - Constitutional Vitals: Vital Signs Temp Pulse Resp BP Pulse Ox 11/13/18 08:00 97.0 F 73 16 102/63 97 11/13/18 03:33 98.5 F 77 16 102/65 98 11/12/18 23:54 98.7 F 78 18 118/79 95 11/12/18 19:55 98.6 F 81 20 115/81 97 11/12/18 16:00 98.9 F 80 18 112/73 98 11/12/18 13:52 98.7 F 70 18 128/77 95 Intake and Output 11/12/18 11/13/18 11/13/18 21:59 05:59 13:59 Intake Total 200 125 100 Output Total 1 1 Balance 199 124 100 Intake: Nourishment/Supplement quantity 200 (ml) Oral 125 100 Output: # of times incontinent of urine 1 1 Other: Meal Dinner Lunch Percent of Meal Consumed 25% 75% Feeding Ability Independent Independent Urine Appearance Clear Urine Color Light Sharron Stool Size Moderate # Voids 1 # Bowel Movements 1 Weight 109 lb Medical - DS: Data Labs on day of discharge: Preliminary micro results at discharge 11/11/18 08:28 Blood Culture - Preliminary Blood 11/11/18 08:18 Blood Culture - Preliminary Blood 11/08/18 14:05 Blood Culture - Preliminary Blood 11/08/18 13:59 Blood Culture - Preliminary Blood 11/09/18 11:06 Blood Culture - Preliminary Blood 11/09/18 11:25 Blood Culture - Preliminary Blood Medical - DS: A/P - Patient/Caregiver Discharge Instructions Activity: as per physical therapy Diet: Regular Diet Additional Instructions: Follow-up ID in 1 week continue Rocephin IV through 11/22 ID to follow-up on arthrocentesis results Follow-up PCP in 5 to 7 days Continue aggressive PT OT Midline care Continue anticoagulation Diet and nutrition support Prescriptions: cefTRIAXone [Rocephin] 2 gm IV DAILY #9 vial Transmission Status: Pending to [facility] - Problem Maintenance (1) Septic shock Status: Acute - Follow up Plan Follow up with: Mick Lucero ARNP [Primary Care Provider] - Disposition: Xfer SNF Prognosis: Fair Rehab Potential: Fair I certify that the patient requires SNF services: Yes Overall status at discharge: patient is progressing back to baseline Medical - DS: Qual - VTE Deep Vein Thrombosis/Pulmonary Embolism Present on Admission: No
--- NOTE | 2018-11-13 15:09 | Ultrasound Report ---
History: Bilateral knee pain, right worse than left, evaluate for septic joint TECHNIQUE: There is a small amount of complex fluid in the suprapatellar bursa of the right knee. The drainage procedure and risks were explained. The patient consented. The skin over the right knee was prepped with ChloraPrep then anesthetized with 1% lidocaine. Using ultrasound guidance a multi sidehole Yueh catheter was inserted into the suprapatellar bursa. 15 cc of cloudy blood-tinged synovial fluid was removed and sent to laboratory for analysis. Following the aspiration most of the fluid was obtained. The synovium remains thickened and hypoechoic. IMPRESSION: Successful aspiration of 15 cc of complex fluid from the right suprapatellar bursa Interpreted and Authenticated by: Jl Espinosa 11/13/18
[2018-11-14 00:32] LABS: Appearance,Synovial Fluid CLOUDY; Color,Synovial Fluid YELLOW; Nucleated Cells,Synovial Fld 12544 /cumm
[2018-11-14 01:20] LABS: Lymphocytes,Synovial Fluid 2 %; Neutrophils,Synovial Fluid 92 % (0-25); Other Cells,Synovial Fluid 6 %
--- NOTE | 2018-11-15 11:49 | Non-GYN Cytology Report ---
NON WINK CUTTER OPERATOR SPECIMEN NG DX CATEGORY Negative MICROSCOPIC DIAGNOSIS RIGHT KNEE FLUID, ASPIRATION: -- DENSE ACUTE INFLAMMATION. (ACP:sln) MICROSCOPIC DESCRIPTION Examination of the right knee aspirate reveals dense acute inflammation with a few histiocytes, lymphocytes and acellular debris. No epithelial cells or malignancy is identified. (ACP:sln) CLINICAL HISTORY Right knee drainage. EXTERNAL COMMENT ~12 mL pink-yellow fluid: 1 thinprep, 1 H/E, 1 Diff Quik, 1 Sanches Giemsa, 1 cell block Electronically Signed by: Carlos Espinosa M.D.
== END 2018-11-13 15:17 | DRG 871 ==
LOC: ED 19:11 → ICU 11-08 02:57 → MEDSUR 11-10 17:30
PROVIDERS: ADMIT Internal Medicine; ATTEND Internal Medicine